=== PATIENT | male | born 1970 | race American Indian/Alaskan Native ===

== ENCOUNTER 2020-08-19 12:04 | Inpatient (IN) | payer SELFPAY ==
[2020-08-19] MEDS ORDERED: dexAMETHasone 4 MG/ML VIAL IV ONE (12:29)
--- NOTE | 2020-08-19 12:32 | Emergency Department Report ---
ED Shortness of Breath HPI - General Chief Complaint: Dyspnea/Respdistress Stated Complaint: SOB/COVID POS Time Seen by Provider: 08/19/20 12:19 Source: EMS Mode of arrival: Stretcher Limitations: No Limitations - History of Present Illness Initial Comments: Patient is 50 years old male with history of hypertension. Patient presented to the ER complaining of cough shortness of breath and generalized weakness for the last few days. Patient stated that he was diagnosed with COVID-19 2 days ago. Patient denied any fever or chills. Patient also denied any nausea, vomiting or diarrhea. No chest pain. Patient found to have a oxygen saturation of 90% on room air. MD Complaint: shortness of breath, cough - Related Data Allergies Allergy/AdvReac Type Severity Reaction Status Date / Time iodine AdvReac Unknown Verified 08/19/20 13:11 ED Review of Systems ROS: Stated complaint: SOB/COVID POS Other details as noted in HPI Comment: All other systems reviewed and negative Constitutional: denies: chills, fever Respiratory: cough, shortness of breath, SOB with exertion, SOB at rest. denies: wheezing Cardiovascular: denies: chest pain, palpitations Gastrointestinal: denies: abdominal pain, nausea, vomiting Neurological: weakness. denies: headache, numbness, paresthesias, confusion, abnormal gait ED Past Medical Hx - Past Medical History Hx Hypertension: Yes ED Physical Exam - General Limitations: No Limitations General appearance: alert, in distress (Moderate respiratory distress.) - Head Head exam: Present: atraumatic, normocephalic, normal inspection - Eye Eye exam: Present: normal appearance, PERRL - ENT ENT exam: Present: mucous membranes dry - Neck Neck exam: Present: normal inspection, full ROM. Absent: tenderness, meningismus - Respiratory Respiratory exam: Present: respiratory distress, rales, decreased breath sounds. Absent: wheezes - Cardiovascular Cardiovascular Exam: Present: regular rate, normal rhythm, normal heart sounds - GI/Abdominal GI/Abdominal exam: Present: soft, normal bowel sounds. Absent: distended, tenderness, guarding, rebound, rigid, organomegaly, mass, bruit, pulsatile mass, hernia - Extremities Exam Extremities exam: Present: normal inspection, full ROM, normal capillary refill. Absent: tenderness, pedal edema, joint swelling, calf tenderness - Back Exam Back exam: Present: normal inspection, full ROM. Absent: CVA tenderness (R), CVA tenderness (L) - Neurological Exam Neurological exam: Present: alert, oriented X3, CN II-XII intact, normal gait, reflexes normal. Absent: motor sensory deficit - Psychiatric Psychiatric exam: Present: normal mood - Skin Skin exam: Present: warm, intact, normal color ED Course Vital Signs 08/19/20 08/19/20 08/19/20 12:08 13:00 13:01 Temperature 100.3 F H Pulse Rate 110 H 105 H 110 H Respiratory 20 27 H 20 Rate Blood Pressure 136/76 125/81 Blood Pressure [Right] O2 Sat by Pulse 90 97 91 Oximetry 08/19/20 08/19/20 08/19/20 13:16 13:30 13:46 Temperature Pulse Rate 102 H 101 H 101 H Respiratory 28 H 41 H 25 H Rate Blood Pressure 125/81 125/81 125/81 Blood Pressure [Right] O2 Sat by Pulse 98 97 93 Oximetry 08/19/20 08/19/20 08/19/20 14:00 14:16 14:30 Temperature Pulse Rate 100 H 99 H 97 H Respiratory 33 H 39 H 35 H Rate Blood Pressure 122/82 122/82 122/82 Blood Pressure [Right] O2 Sat by Pulse 94 94 97 Oximetry 08/19/20 08/19/20 08/19/20 14:31 14:46 15:00 Temperature Pulse Rate 97 H 101 H Respiratory 18 25 H 34 H Rate Blood Pressure 122/82 114/77 Blood Pressure [Right] O2 Sat by Pulse 96 100 Oximetry 08/19/20 08/19/20 08/19/20 15:16 15:30 15:46 Temperature Pulse Rate 96 H 97 H 91 H Respiratory 34 H 34 H 29 H Rate Blood Pressure 114/77 114/77 114/77 Blood Pressure [Right] O2 Sat by Pulse 96 96 96 Oximetry 08/19/20 08/19/20 08/19/20 16:00 16:16 16:30 Temperature Pulse Rate 95 H 99 H 94 H Respiratory 27 H 20 17 Rate Blood Pressure 134/89 134/89 134/89 Blood Pressure [Right] O2 Sat by Pulse 96 93 92 Oximetry 08/19/20 08/19/20 08/19/20 16:46 19:00 19:16 Temperature Pulse Rate 92 H 86 89 Respiratory 29 H Rate Blood Pressure 134/89 140/93 140/93 Blood Pressure [Right] O2 Sat by Pulse 96 95 95 Oximetry 08/19/20 08/19/20 08/19/20 19:30 20:00 20:16 Temperature 97.9 F Pulse Rate 90 86 86 Respiratory 24 Rate Blood Pressure 140/93 145/96 145/96 Blood Pressure 140/93 [Right] O2 Sat by Pulse 95 95 96 Oximetry ED Medical Decision Making - Lab Data Result diagrams: 08/20/20 08:37 08/20/20 08:37 - Radiology Data Radiology results: report reviewed - Medical Decision Making Patient is 50 years old male with history of hypertension. Patient presented to the ER complaining of cough shortness of breath and generalized weakness for the last few days. Patient stated that he was diagnosed with COVID-19 2 days ago. Patient denied any fever or chills. Patient also denied any nausea, vomiting or diarrhea. No chest pain. Patient found to have a oxygen saturation of 90% on room air. Chest x-ray showed diffuse infiltrates. Patient received dexamethasone, Rocephin and Zithromax. Lactic acid elevated at 2.2 patient received normal saline. COVID-19 test has been ordered. I discussed the patient with Dr. Rdz, he agreed to admit the patient to medical service for further management. Critical Care Time: Yes Critical care time in (mins) excluding proc time.: 30 Critical care attestation.: If time is entered above; I have spent that time in minutes in the direct care of this critically ill patient, excluding procedure time. ED Disposition Clinical Impression: Acute respiratory failure due to COVID-19, Bilateral pneumonia Sepsis Qualifiers: Acute respiratory failure type: with hypoxia Disposition: OP ADMIT IP TO THIS HOSP Is pt being admited?: Yes Condition: Stable
--- NOTE | 2020-08-19 13:11 | XRay Report ---
CHEST 1 VIEW INDICATION / CLINICAL INFORMATION: Dyspnea. COMPARISON: None available. FINDINGS: SUPPORT DEVICES: None. HEART / MEDIASTINUM: No significant abnormality. LUNGS / PLEURA: Mild-moderate and irregular hazy opacities throughout the lungs. Lung volumes are low . No significant pleural effusion. No pneumothorax. ADDITIONAL FINDINGS: No significant additional findings. IMPRESSION: 1. Mild/moderate diffuse airspace disease concerning for atypical pneumonia such as that with Covid 1 9. Recommend clinical correlation and continued follow-up until resolution. Signer Name: Miki Robbins MD Signed: 08/19/2020 1:06 PM Workstation Name: [id number]
[2020-08-19 13:26] LABS: Hematocrit 42.2 % (35.5-45.6); Hemoglobin 14.3 gm/dl (11.8-15.2); Mean Corpuscular HGB Conc 34 % (32-34); Mean Corpuscular Volume 84 fl (84-94); Platelet Count 272 K/mm3 (140-440); Red Blood Count 5.05 M/mm3 (3.65-5.03); Red Cell Distribution Width 13.1 % (13.2-15.2)
[2020-08-19] MEDS ORDERED: cefTRIAXone/NS 1 GM/50 ML 1 GM/50 ML BAG IV ONE (13:33)
[2020-08-19 13:35] LABS: INR 1.13 (0.87-1.13)
[2020-08-19 13:36] LABS: Partial Thromboplastin Time 29.2 Sec. (24.2-36.6)
[2020-08-19] MEDS ORDERED: SODIUM CHLORIDE 0.9% 1000 ML 1,000 ML IV ONE ×2 (13:37→14:09)
[2020-08-19 13:45] LABS: BUN/Creatinine Ratio 16; Blood Urea Nitrogen 16 mg/dL (9-20); Hemolysis Index 1
[2020-08-19 13:49] LABS: Bilirubin,Direct 0.2 mg/dL (0-0.2)
[2020-08-19] MEDS ORDERED: INSULIN REGULAR, HUMAN 100 UNIT/ML 3ML VIAL IV ONE (14:00)
[2020-08-19] MEDS ORDERED: AZITHROMYCIN 500 MG in SODIUM CHLORIDE 0.9% 250ML 250 ML IV ONE (14:00)
[2020-08-19] MEDS ORDERED: ACETAMINOPHEN 500 MG TAB PO ONE (14:09)
--- NOTE | 2020-08-19 14:30 | History and Physical Report ---
History of Present Illness Chief complaint: I just feel bad History of present illness: 50 YO Male with HTN presents to ED for evaluation. Patient states that he has "been feeling bad" for the past 4 days with persistently worsening symptoms over the same timeframe. Patient was diagnosed with coronavirus 2 days ago. Patient states that he has experienced, dry cough, shortness of breath, decreased exercise tolerance, loss of sense of smell, loss of sense of taste, fatigue, malaise, body aches. EMS notified and upon arrival the patient was found to be in distress and subsequently transported to [facility] for further care and evaluation of the aforementioned symptoms. Patient seen and evaluated in the emergency de partment. All lab and imaging studies reviewed. Patient found to have a pulse oximetry of 88% with exertion on room air which is consistent with acute hypoxemic respiratory failure. Patient underwent chest x-ray which revealed bilateral pneumonia complicated by sepsis. Patient admitted to medical floor and initiated on pneumonia protocol, sepsis protocol, as well as coronavirus protocol. Patient denies chest pain, palpitation, skin rash, recent ill contacts, trauma. No medication listed at time of admission. No prior admission for review. Past History Past Medical History: hypertension Past Surgical History: No surgical history, Other (Reviewed) Social history: single. denies: smoking, alcohol abuse, prescription drug abuse Family history: hypertension Medications and Allergies Allergies Allergy/AdvReac Type Severity Reaction Status Date / Time iodine AdvReac Unknown Verified 08/19/20 13:11 Active Meds: Active Medications Azithromycin 500 mg/ Sodium (Chloride) 250 mls @ 250 mls/hr IV ONCE ONE; Protocol Stop: 08/19/20 14:59 Sodium Chloride (Nacl 0.9% 1000 Ml) 1,000 mls @ 999 mls/hr IV BOLUS ONE Stop: 08/19/20 14:37 Sodium Chloride (Nacl 0.9% 1000 Ml) 1,000 mls @ 999 mls/hr IV BOLUS ONE Stop: 08/19/20 15:09 Review of Systems Constitutional: fatigue, weakness, malaise, no weight loss, no weight gain Ears, nose, mouth and throat: other (Loss of sense of smell, loss of sense of taste), no ear pain, no ear discharge, no tinnitis, no decreased hearing, no nasal congestion Cardiovascular: no chest pain, no orthopnea, no edema Respiratory: shortness of breath, no cough Gastrointestinal: no nausea, no vomiting, no diarrhea, no constipation Genitourinary Male: no hematuria, no flank pain, no urinary frequency, no urinary hesitancy Rectal: no pain, no incontinence, no bleeding Musculoskeletal: no neck stiffness, no shooting arm pain, no arm numbness/tingling, no low back pain Integumentary: no rash, no pruritis, no redness, no sores, no wounds, no jaundice Neurological: no head injury, no weakness, no parathesias Psychiatric: no anxiety, no memory loss, no change in sleep habits, no change in appetite Endocrine: no cold intolerance, no excessive thirst, no polydipsia, no polyuria, no nocturia Hematologic/Lymphatic: no easy bruising, no easy bleeding, no lymphadenopathy Allergic/Immunologic: no urticaria, no anaphylaxis Exam - Constitutional Vitals: Temp Pulse Resp BP Pulse Ox 100.3 F H 110 H 20 125/81 91 08/19/20 12:08 08/19/20 13:01 08/19/20 13:01 08/19/20 13:00 08/19/20 13:01 General appearance: Present: mild distress - EENT Eyes: Present: PERRL ENT: hearing intact, clear oral mucosa - Neck Neck: Present: supple, normal ROM - Respiratory Respiratory effort: labored, accessory muscle use, stridor Respiratory: bilateral: diminished, rhonchi - Cardiovascular Rhythm: other (Tachycardia) Heart Sounds: Present: S1 & S2. Absent: rub, click - Extremities Extremities: pulses symmetrical, No edema Peripheral Pulses: abnormal (Capillary refill greater than 3.5 seconds) - Abdominal General gastrointestinal: Present: soft, non-tender, non-distended, normal bowel sounds Male genitourinary: Present: normal - Integumentary Integumentary: Present: dry, clammy, decreased turgor - Musculoskeletal Musculoskeletal: generalized weakness - Psychiatric Psychiatric: appropriate mood/affect, intact judgment & insight - Neurologic Neurologic: CNII-XII intact, moves all extremities Results - Labs CBC & Chem 7: 08/19/20 13:04 08/19/20 13:04 Labs: Abnormal lab results 08/19/20 08/19/20 08/19/20 Range/Units 13:04 13:04 13:04 WBC 11.6 H (4.5-11.0) K/mm3 RBC 5.05 H (3.65-5.03) M/mm3 RDW 13.1 L (13.2-15.2) % Sodium 135 L (137-145) mmol/L Potassium 5.1 H (3.6-5.0) mmol/L Glucose 324 H (75-100) mg/dL Lactic Acid 2.10 H* (0.7-2.0) mmol/L AST (5-40) units/L Albumin (3.9-5) g/dL 08/19/20 Range/Units 13:04 WBC (4.5-11.0) K/mm3 RBC (3.65-5.03) M/mm3 RDW (13.2-15.2) % Sodium (137-145) mmol/L Potassium (3.6-5.0) mmol/L Glucose (75-100) mg/dL Lactic Acid (0.7-2.0) mmol/L AST 48 H (5-40) units/L Albumin 3.0 L (3.9-5) g/dL Assessment and Plan - Patient Problems (1) Sepsis Current Visit: Yes Status: Acute Qualifiers: Acute respiratory failure type: with hypoxia Plan to address problem: Sepsis protocol: Chest x-ray, CBC, CMP, urinalysis, IV antibiotic therapy, blood culture, serial lactic acid level, maintain mean arterial blood pressure greater than or equal to 65, monitor fluid balance, (2) Acute hypoxemic respiratory failure Current Visit: Yes Status: Acute Plan to address problem: Chest x-ray, supplemental oxygen, pulse oximetry, nebulizer therapy, pulmonary toilet, prone positioning while in bed, (3) Coronavirus infection Current Visit: Yes Status: Acute Plan to address problem: Coronavirus protocol: Contact precaution, isolation precaution, supplemental oxygen, pulse oximetry, nebulizer therapy, IV steroid therapy, IV antibiotic therapy (4) Bilateral pneumonia Current Visit: Yes Status: Acute Plan to address problem: Pneumonia protocol: Chest x-ray, CBC, CMP, nebulizer therapy, pulse oximetry, IV antibiotic therapy, blood culture. (5) Hypertension Current Visit: Yes Status: Acute Qualifiers: Hypertension type: essential hypertension Qualified Code(s): I10 - Essential (primary) hypertension Plan to address problem: Monitor blood pressure every shift, continue medical management (6) DVT prophylaxis Current Visit: Yes Status: Acute Plan to address problem: SCD to bilateral lower extremities while in bed, prophylactic anticoagulation
[2020-08-19 14:43] LABS: Band Neutrophils # (Manual) 0.1 K/mm3; Total Cells Counted 100
[2020-08-19 14:44] LABS: Platelet Estimate Consistent w Auto; RBC Morphology Normal
[2020-08-19] MEDS ORDERED: HYDROmorphone 1 MG/1 ML INJ IV PRN (14:44)
[2020-08-19] MEDS ORDERED: ONDANSETRON 4 MG/2 ML INJ IV PRN (14:44)
[2020-08-19] MEDS ORDERED: ALBUTEROL 2.5 MG/3 ML NEBU IH PRN (14:44)
[2020-08-19] MEDS ORDERED: ACETAMINOPHEN 325 MG TAB PO PRN (14:44)
[2020-08-19 20:48] LABS: Bilirubin,Urine NEG (Negative); Blood,Urine NEG (Negative); Color,Urine Yellow (Yellow); Urobilinogen,Urine < 2.0 mg/dL (<2.0)
[2020-08-19 20:52] LABS: Protein,Urine >500 mg/dL (Negative)
[2020-08-19] MEDS: HEPARIN 5,000 UNIT/1 ML VIAL SUB-Q SCH (22:46)
[2020-08-20] MEDS ORDERED: hydrALAZINE 20 MG/1 ML INJ IV ONE (07:05)
[2020-08-20] MEDS: HEPARIN 5,000 UNIT/1 ML VIAL SUB-Q SCH ×2 (09:34→22:12)
[2020-08-20 09:59] LABS: BUN/Creatinine Ratio 24; Blood Urea Nitrogen 22 mg/dL (9-20); Calcium 8.8 mg/dL (8.4-10.2); Hemolysis Index 34
[2020-08-20 10:00] LABS: Basophils # (Auto) 0.1 K/mm3 (0.0-0.1); Basophils % (Auto) 0.6 % (0.0-1.8); Hematocrit 42.4 % (35.5-45.6); Hemoglobin 14.4 gm/dl (11.8-15.2); Lymphocytes # (Auto) 1.2 K/mm3 (1.2-5.4); Lymphocytes % (Auto) 9.5 % (13.4-35.0); Mean Corpuscular HGB Conc 34 % (32-34); Mean Corpuscular Volume 84 fl (84-94); Monocytes # (Auto) 1.1 K/mm3 (0.0-0.8); Monocytes % (Auto) 8.8 % (0.0-7.3); Platelet Count 316 K/mm3 (140-440); Red Blood Count 5.03 M/mm3 (3.65-5.03); Red Cell Distribution Width 13.1 % (13.2-15.2)
--- NOTE | 2020-08-20 11:15 | Consultation ---
History of Present Illness - Reason for Consult Consult date: 08/20/20 - History of Present Illness 50-year-old man past medical history hypertension brought to the hospital due to general malaise for the past 4 days. His symptoms are also progressively worse over that timeframe. He notes he was diagnosed as an outpatient with COVID-19 2 days prior to admission. He also complains of dry cough and shortness of breath. He has had to be hypoxic on presentation to the emergency room with a room air saturation of 88%. He otherwise denies any symptoms. Afebrile since admission with a T-max of 100.3, white count is 12.4. Elevated lactic acid on admission, normal renal function, pending procalcitonin. Currently receiving ceftriaxone and azithromycin. Blood cultures currently pending. He is receiving 3 L nasal cannula. Imaging personally reviewed: Chest x-ray: Moderate diffuse airspace disease. Review of Systems: Bold if positive, otherwise negative General: fevers, chills, rigors HEENT: visual disturbance, diplopia, eye pain Respiratory: cough, sputum, hemoptysis, shortness of breath Cardiovascular: chest pain, syncope Gastrointestinal: nausea, vomiting, diarrhea, abdominal pain Genitourinary: dysuria, hematuria, flank pain Musculoskeletal: neck pain, back pain, joint pain, edema Neurologic: headaches, seizures Hematologic: easy bruising or bleeding Endocrine: night sweats, acute weight loss Skin: rash, jaundice, redness Psychiatric: suicidal, homicidal ideation Past History Past Medical History: hypertension Past Surgical History: No surgical history, Other (Reviewed) Social history: single. denies: smoking, alcohol abuse, prescription drug abuse Family history: hypertension Medications and Allergies Allergies Allergy/AdvReac Type Severity Reaction Status Date / Time iodine AdvReac Unknown Verified 08/19/20 13:11 Active Meds: Active Medications Acetaminophen (Acetaminophen 325 Mg Tab) 650 mg PO Q4H PRN PRN Reason: Pain MILD(1-3)/Fever >100.5/MEIER Albuterol (Albuterol 2.5 Mg/3 Ml Nebu) 2.5 mg IH Q4H PRN PRN Reason: Shortness Of Breath Heparin Sodium (Porcine) (Heparin 5,000 Unit/1 Ml Vial) 5,000 unit SUB-Q Q12HR TARA Last Admin: 08/20/20 09:34 Dose: 5,000 unit Documented by: Hydromorphone HCl (Hydromorphone 1 Mg/1 Ml Inj) 0.25 mg IV Q4H PRN PRN Reason: Pain, Moderate (4-6) Ceftriaxone Sodium (Rocephin/Ns 2 Gm/100 Ml) 2 gm in 100 mls @ 200 mls/hr IV Q24H TARA; Protocol Azithromycin 500 mg/ Sodium (Chloride) 250 mls @ 250 mls/hr IV Q24H TARA; Protocol Ondansetron HCl (Ondansetron 4 Mg/2 Ml Inj) 4 mg IV Q8H PRN PRN Reason: Nausea And Vomiting Sodium Chloride (Sodium Chloride 0.9% 10 Ml Flush Syringe) 10 ml IV BID TARA Last Admin: 08/20/20 09:35 Dose: 10 ml Documented by: Sodium Chloride (Sodium Chloride 0.9% 10 Ml Flush Syringe) 10 ml IV PRN PRN PRN Reason: LINE FLUSH Physical Examination - Physical Exam Narrative exam: Physical exam deferred due to PPE conservation strategy. Please refer to primary team's note. - Constitutional Vitals: Vital Signs Temp Pulse Resp BP Pulse Ox 98.6 F 101 H 20 164/111 95 08/20/20 05:44 08/20/20 05:44 08/20/20 05:44 08/20/20 05:44 08/20/20 09:07 Temperature -Last 24 Hours Temperature 98.6 F Temperature 98.1 F Temperature 97.9 F Temperature 100.3 F Results - Labs CBC & Chem 7: 08/20/20 08:37 08/20/20 08:37 Labs: Abnormal lab results 08/19/20 08/19/20 08/19/20 Range/Units 13:04 13:04 13:04 WBC 11.6 H (4.5-11.0) K/mm3 RBC 5.05 H (3.65-5.03) M/mm3 RDW 13.1 L (13.2-15.2) % Lymph % (Auto) (13.4-35.0) % [place] % (Auto) (0.0-7.3) % [place] # (Auto) (0.0-0.8) K/mm3 Seg Neutrophils % (40.0-70.0) % Seg Neuts % (Manual) 89.0 H (40.0-70.0) % Lymphocytes % (Manual) 7.0 L (13.4-35.0) % Seg Neutrophils # (1.8-7.7) K/mm3 Seg Neutrophils # Man 10.3 H (1.8-7.7) K/mm3 Lymphocytes # (Manual) 0.8 L (1.2-5.4) K/mm3 Sodium 135 L (137-145) mmol/L Potassium 5.1 H (3.6-5.0) mmol/L Carbon Dioxide (22-30) mmol/L BUN (9-20) mg/dL Glucose 324 H (75-100) mg/dL POC Glucose (70-105) mg/dL Lactic Acid 2.10 H* (0.7-2.0) mmol/L AST (5-40) units/L Albumin (3.9-5) g/dL 08/19/20 08/19/20 08/20/20 Range/Units 13:04 14:39 08:37 WBC 12.4 H (4.5-11.0) K/mm3 RBC (3.65-5.03) M/mm3 RDW 13.1 L (13.2-15.2) % Lymph % (Auto) 9.5 L (13.4-35.0) % [place] % (Auto) 8.8 H (0.0-7.3) % [place] # (Auto) 1.1 H (0.0-0.8) K/mm3 Seg Neutrophils % 81.1 H (40.0-70.0) % Seg Neuts % (Manual) (40.0-70.0) % Lymphocytes % (Manual) (13.4-35.0) % Seg Neutrophils # 10.0 H (1.8-7.7) K/mm3 Seg Neutrophils # Man (1.8-7.7) K/mm3 Lymphocytes # (Manual) (1.2-5.4) K/mm3 Sodium (137-145) mmol/L Potassium (3.6-5.0) mmol/L Carbon Dioxide (22-30) mmol/L BUN (9-20) mg/dL Glucose (75-100) mg/dL POC Glucose 274 H (70-105) mg/dL Lactic Acid (0.7-2.0) mmol/L AST 48 H (5-40) units/L Albumin 3.0 L (3.9-5) g/dL 08/20/20 Range/Units 08:37 WBC (4.5-11.0) K/mm3 RBC (3.65-5.03) M/mm3 RDW (13.2-15.2) % Lymph % (Auto) (13.4-35.0) % [place] % (Auto) (0.0-7.3) % [place] # (Auto) (0.0-0.8) K/mm3 Seg Neutrophils % (40.0-70.0) % Seg Neuts % (Manual) (40.0-70.0) % Lymphocytes % (Manual) (13.4-35.0) % Seg Neutrophils # (1.8-7.7) K/mm3 Seg Neutrophils # Man (1.8-7.7) K/mm3 Lymphocytes # (Manual) (1.2-5.4) K/mm3 Sodium 135 L (137-145) mmol/L Potassium (3.6-5.0) mmol/L Carbon Dioxide 20 L (22-30) mmol/L BUN 22 H (9-20) mg/dL Glucose 462 H (75-100) mg/dL POC Glucose (70-105) mg/dL Lactic Acid (0.7-2.0) mmol/L AST (5-40) units/L Albumin (3.9-5) g/dL Assessment and Plan Cultures: Blood culture no growth so far. A/P: 50-year-old man past medical history hypertension admitted to the hospital with COVID-19 #COVID-19 pneumonia: Patient presented with 4 days of symptoms, chest x-ray with diffuse bilateral infiltrates, admission O2 sats 88% on room air #Acute hypoxemic respiratory failure: Likely secondary to COVID-19 infection. Currently on 3L NC #Hypertension Recs: -Start Dexamethasone 6 mg IV/PO daily for 10 days -Start Remdesivir 200 mg IV q day x 1 followed by 100 mg IV q day x 4 days. Monitor renal and hepatic function while receiving. -Continue ceftriaxone 2 gm IV qday and azithromycin 500 mg PO qday, if procalcitonin <0.25 ng/mL will stop antibiotics -Proning as able -Anticoagulation per hospital protocol Dr. Larios taking over tomorrow Thank you for the consult, we will continue to follow. Leonardo Dickens MD [facility] ([facility] O: [phone] F: [phone]
--- NOTE | 2020-08-20 12:23 | Consultation ---
History of Present Illness Reason for consult: dyspnea, pneumonia History of present illness: This is a gentleman w hx of recently dx HTN who also has had fatigue and sob. He was covid positive. he came in the [facility] during eval was noted to be hypoxic Presently he is still sob w cough. He reports that cough is non productive at this time also so w minimal exertion. None at rest Past History Past Medical History: hypertension Past Surgical History: No surgical history, Other (Reviewed) Social history: single. denies: smoking, alcohol abuse, prescription drug abuse Family history: hypertension Medications and Allergies Allergies Allergy/AdvReac Type Severity Reaction Status Date / Time iodine AdvReac Unknown Verified 08/19/20 13:11 Home Medications Medication Instructions Recorded Confirmed Last Taken Type Lisinopril 08/20/20 Unknown History Active Meds: Active Medications Acetaminophen (Acetaminophen 325 Mg Tab) 650 mg PO Q4H PRN PRN Reason: Pain MILD(1-3)/Fever >100.5/MEIER Albuterol (Albuterol 2.5 Mg/3 Ml Nebu) 2.5 mg IH Q4H PRN PRN Reason: Shortness Of Breath Dexamethasone (Dexamethasone 4 Mg Tab) 6 mg PO Q24HR TARA Heparin Sodium (Porcine) (Heparin 5,000 Unit/1 Ml Vial) 5,000 unit SUB-Q Q12HR TARA Last Admin: 08/20/20 09:34 Dose: 5,000 unit Documented by: Hydromorphone HCl (Hydromorphone 1 Mg/1 Ml Inj) 0.25 mg IV Q4H PRN PRN Reason: Pain, Moderate (4-6) Ceftriaxone Sodium (Rocephin/Ns 2 Gm/100 Ml) 2 gm in 100 mls @ 200 mls/hr IV Q24H TARA; Protocol Azithromycin 500 mg/ Sodium (Chloride) 250 mls @ 250 mls/hr IV Q24H TARA; Protocol REMDESIVIR 200 mg/ Sodium (Chloride) 250 mls @ 500 mls/hr IV ONCE ONE Stop: 08/20/20 12:59 REMDESIVIR 100 mg/ Sodium (Chloride) 250 mls @ 500 mls/hr IV Q24HR@2100 TARA Stop: 08/24/20 21:29 Ondansetron HCl (Ondansetron 4 Mg/2 Ml Inj) 4 mg IV Q8H PRN PRN Reason: Nausea And Vomiting Sodium Chloride (Sodium Chloride 0.9% 10 Ml Flush Syringe) 10 ml IV BID [facility] Last Admin: 08/20/20 09:35 Dose: 10 ml Documented by: Sodium Chloride (Sodium Chloride 0.9% 10 Ml Flush Syringe) 10 ml IV PRN PRN PRN Reason: LINE FLUSH Sodium Chloride (Sodium Chloride 0.9% 50 Ml Ivpb) 50 ml IV Q24HR@2130 [facility] Stop: 08/24/20 21:31 Review of Systems Constitutional: fatigue, weakness Respiratory: cough, shortness of breath, dyspnea on exertion, congestion Physical Examination Vital signs: Vital Signs Temp Pulse Resp BP Pulse Ox 100.3 F H 110 H 20 136/76 90 08/19/20 12:08 08/19/20 12:08 08/19/20 12:08 08/19/20 12:08 08/19/20 12:08 General appearance: alert Eyes: non-icteric Neck: supple Ascultation: Bilateral: rhonchi (rare) Cardiovascular: regular rate and rhythm Gastrointestinal: normoactive bowel sounds, soft, non-tender Integumentary: normal Extremities: no cyanosis normal mental status mood appropriate Results - Laboratory Findings CBC and BMP: 08/20/20 08:37 08/20/20 08:37 PT/INR, D-dimer PT 14.3 Sec. (12.2-14.9) 08/19/20 13:04 INR 1.13 (0.87-1.13) 08/19/20 13:04 Abnormal lab findings: Abnormal Labs 08/19/20 08/19/20 08/19/20 13:04 13:04 13:04 WBC 11.6 H RBC 5.05 H RDW 13.1 L Lymph % (Auto) [place] % (Auto) [place] # (Auto) Seg Neutrophils % Seg Neuts % (Manual) 89.0 H Lymphocytes % (Manual) 7.0 L Seg Neutrophils # Seg Neutrophils # Man 10.3 H Lymphocytes # (Manual) 0.8 L Sodium 135 L Potassium 5.1 H Carbon Dioxide BUN Glucose 324 H POC Glucose Lactic Acid 2.10 H* AST Albumin 08/19/20 08/19/20 08/20/20 13:04 14:39 08:37 WBC 12.4 H RBC RDW 13.1 L Lymph % (Auto) 9.5 L [place] % (Auto) 8.8 H [place] # (Auto) 1.1 H Seg Neutrophils % 81.1 H Seg Neuts % (Manual) Lymphocytes % (Manual) Seg Neutrophils # 10.0 H Seg Neutrophils # Man Lymphocytes # (Manual) Sodium Potassium Carbon Dioxide BUN Glucose POC Glucose 274 H Lactic Acid AST 48 H Albumin 3.0 L 08/20/20 08:37 WBC RBC RDW Lymph % (Auto) [place] % (Auto) [place] # (Auto) Seg Neutrophils % Seg Neuts % (Manual) Lymphocytes % (Manual) Seg Neutrophils # Seg Neutrophils # Man Lymphocytes # (Manual) Sodium 135 L Potassium Carbon Dioxide 20 L BUN 22 H Glucose 462 H POC Glucose Lactic Acid AST Albumin - Diagnostic Findings Chest x-ray: report reviewed, image reviewed Assessment and Plan - Patient Problems (1) Cough Current Visit: Yes Status: Acute (2) Acute hypoxemic respiratory failure Current Visit: Yes Status: Acute (3) Acute respiratory failure due to COVID-19 Current Visit: Yes Status: Acute (4) Bilateral pneumonia Current Visit: Yes Status: Acute (5) Coronavirus infection Current Visit: Yes Status: Acute (6) Hypertension Current Visit: Yes Status: Acute Qualifiers: Hypertension type: essential hypertension Qualified Code(s): I10 - Essential (primary) hypertension (7) Sepsis Current Visit: Yes Status: Acute Qualifiers: Acute respiratory failure type: with hypoxia
[2020-08-20] MEDS ORDERED: REMDESIVIR 100 MG VIAL IV ONE (12:30)
[2020-08-20] MEDS ORDERED: REMDESIVIR 200 MG in SODIUM CHLORIDE 0.9% 250ML 250 ML IV ONE (12:30)
[2020-08-20] MEDS: cefTRIAXone/NS 2 GM/100 ML 2 GM/100 ML BAG IV SCH (13:42)
[2020-08-20] MEDS: BENZONATATE 100 MG CAP PO SCH ×2 (13:44→22:12)
[2020-08-20] MEDS: DEXAMETHASONE 4 MG TAB PO SCH (13:44)
[2020-08-20] MEDS: SODIUM CHLORIDE 0.9% 50 ML IVPB IV SCH (13:47)
[2020-08-20] MEDS: AZITHROMYCIN 500 MG in SODIUM CHLORIDE 0.9% 250ML 250 ML IV SCH (15:30)
[2020-08-21] MEDS: BENZONATATE 100 MG CAP PO SCH ×4 (05:26→22:01)
--- NOTE | 2020-08-21 06:44 | Progress Note ---
Assessment and Plan Assessment and Plan - Patient Problems (1) Sepsis Current Visit: Yes Status: Acute Qualifiers: Acute respiratory failure type: with hypoxia Plan to address problem: Sepsis protocol: Chest x-ray, CBC, CMP, urinalysis, IV antibiotic therapy, blood culture, serial lactic acid level, maintain mean arterial blood pressure greater than or equal to 65, monitor fluid balance, (2) Acute hypoxemic respiratory failure Current Visit: Yes Status: Acute Plan to address problem: Continue oxygen supplementation (3) Coronavirus infection Current Visit: Yes Status: Acute Plan to address problem: Patient is apparently Covid positive No Covid test done We will get a repeat coronavirus PCR (4) Bilateral pneumonia Current Visit: Yes Status: Acute Plan to address problem: Pneumonia protocol: Chest x-ray, CBC, CMP, nebulizer therapy, pulse oximetry, IV antibiotic therapy, blood culture. (5) Hypertension Current Visit: Yes Status: Acute Qualifiers: Hypertension type: essential hypertension Qualified Code(s): I10 - Essential (primary) hypertension Plan to address problem: Monitor blood pressure every shift, continue medical management (6) DVT prophylaxis Current Visit: Yes Status: Acute Plan to address problem: SCD to bilateral lower extremities while in bed, prophylactic anticoagulation Subjective Date of service: 08/20/20 Principal diagnosis: Covid pneumonia and respiratory failure with hypoxia Interval history: 50-year-old man past medical history hypertension brought to the hospital due to general malaise for the past 4 days. His symptoms are also progressively worse over that timeframe. He notes he was diagnosed as an outpatient with COVID-19 2 days prior to admission. He also complains of dry cough and shortness of breath. He has had to be hypoxic on presentation to the emergency room with a room air saturation of 88%. He otherwise denies any symptoms. Afebrile since admission with a T-max of 100.3, white count is 12.4. Elevated lactic acid on admission, normal renal function, pending procalcitonin. Currently receiving ceftriaxone and azithromycin. Blood cultures currently pending. He is receiving 3 L nasal cannula. 08/20/2020 Patient on 3 L nasal cannula oxygen Patient is Covid positive Objective - Constitutional Vitals: Vital Signs - 12hr 08/20/20 08/20/20 08/21/20 20:10 23:28 05:39 Temperature 97.7 F 97.4 F L Pulse Rate 94 H 91 H Respiratory 20 20 Rate Blood Pressure 159/107 169/112 O2 Sat by Pulse 95 94 94 Oximetry General appearance: Present: mild distress, well-nourished - EENT Eyes: PERRL, EOM intact ENT: hearing intact, clear oral mucosa Ears: bilateral: normal - Neck Neck: supple, normal ROM - Respiratory Respiratory effort: normal Respiratory: bilateral: CTA, rhonchi (Scattered) - Breasts Breasts: normal - Cardiovascular Heart rate: 88 Rhythm: regular Heart Sounds: Present: S1 & S2. Absent: gallop, rub Extremities: pulses intact, No edema, normal color, Full ROM - Gastrointestinal General gastrointestinal: Present: soft, non-tender, non-distended, normal bowel sounds - Genitourinary Male genitourinary: normal - Integumentary Integumentary: clear, warm, dry - Musculoskeletal Musculoskeletal: 1, strength equal bilaterally - Neurologic Neurologic: moves all extremities - Psychiatric Psychiatric: memory intact, appropriate mood/affect, intact judgment & insight - Labs CBC & Chem 7: 08/20/20 08:37 08/20/20 08:37 Labs: Abnormal lab results 08/20/20 08/20/20 Range/Units 08:37 08:37 WBC 12.4 H (4.5-11.0) K/mm3 RDW 13.1 L (13.2-15.2) % Lymph % (Auto) 9.5 L (13.4-35.0) % [place] % (Auto) 8.8 H (0.0-7.3) % [place] # (Auto) 1.1 H (0.0-0.8) K/mm3 Seg Neutrophils % 81.1 H (40.0-70.0) % Seg Neutrophils # 10.0 H (1.8-7.7) K/mm3 Sodium 135 L (137-145) mmol/L Carbon Dioxide 20 L (22-30) mmol/L BUN 22 H (9-20) mg/dL Glucose 462 H (75-100) mg/dL
--- NOTE | 2020-08-21 08:13 | Progress Note ---
Assessment and Plan Cultures: Blood culture no growth so far. A/P: 50-year-old man past medical history hypertension admitted to the hospital with COVID-19 #Severe COVID-19 pneumonia: Patient presented with 4 days of symptoms, chest x- ray with diffuse bilateral infiltrates, admission O2 sats 88% on room air #Acute hypoxemic respiratory failure: Likely secondary to COVID-19 infection. Remains on 3L NC #Hypertension #Elevated lactate: Likely due to pneumonia, blood cultures negative, urinalysis negative. Recs: -STAT Covid inflammatory markers, check SARS Covid 2 IgG -Continue dexamethasone 6 mg IV/PO daily for 10 days -Continue remdesivir total 5 days monitor renal and hepatic function while receiving. -Continue ceftriaxone 2 gm IV qday and azithromycin 500 mg PO qday, if procalcitonin <0.25 ng/mL will stop antibiotics, procalcitonin not available -Proning as able -Anticoagulation per hospital protocol Shanna Larios MD [facility] ([facility]) Office [phone] Subjective Date of service: 08/21/20 Principal diagnosis: Covid pneumonia and respiratory failure with hypoxia Interval history: Remains afebrile, on 3 L nasal cannula Objective - Exam Narrative Exam: Deferred to prevent COVID-19 transmission - Constitutional Vitals: Vital Signs Temp Pulse Resp BP Pulse Ox 97.4 F L 91 H 20 169/112 94 08/21/20 05:39 08/21/20 05:39 08/21/20 05:39 08/21/20 05:39 08/21/20 05:39 Temperature -Last 24 Hours Temperature 97.4 F Temperature 97.7 F Temperature 98.0 F Temperature 98.5 F - Labs CBC & Chem 7: 08/20/20 08:37 08/20/20 08:37 Labs: Abnormal lab results 08/20/20 08/20/20 Range/Units 08:37 08:37 WBC 12.4 H (4.5-11.0) K/mm3 RDW 13.1 L (13.2-15.2) % Lymph % (Auto) 9.5 L (13.4-35.0) % [place] % (Auto) 8.8 H (0.0-7.3) % [place] # (Auto) 1.1 H (0.0-0.8) K/mm3 Seg Neutrophils % 81.1 H (40.0-70.0) % Seg Neutrophils # 10.0 H (1.8-7.7) K/mm3 Sodium 135 L (137-145) mmol/L Carbon Dioxide 20 L (22-30) mmol/L BUN 22 H (9-20) mg/dL Glucose 462 H (75-100) mg/dL
[2020-08-21] MEDS: HEPARIN 5,000 UNIT/1 ML VIAL SUB-Q SCH ×2 (09:58→22:02)
[2020-08-21] MEDS: DEXAMETHASONE 4 MG TAB PO SCH (09:59)
--- NOTE | 2020-08-21 10:05 | Progress Note ---
Assessment and Plan 50 y/o male with acute respiratory failure and COVID positive with Hypertension. 1. Prone daily and sleep prone at night 2. Continue steroids 3. Continue remdesivir 4. Will give lasix 40mg IV x1 5. No additional IVF's Will continue to follow along with you. Subjective Date of service: 08/21/20 Principal diagnosis: Covid pneumonia and respiratory failure with hypoxia Interval history: No acute events. Still on 3 liters. Objective Vital Signs - 12hr 08/20/20 08/21/20 23:28 05:39 Temperature 97.7 F 97.4 F L Pulse Rate 94 H 91 H Respiratory 20 20 Rate Blood Pressure 159/107 169/112 O2 Sat by Pulse 94 94 Oximetry Constitutional: alert Eyes: non-icteric Neck: supple Ascultation: Bilateral: rhonchi (rare) Cardiovascular: regular rate and rhythm Gastrointestinal: normoactive bowel sounds, soft, non-tender Integumentary: normal Extremities: no cyanosis Neurologic: normal mental status Psychiatric: mood appropriate CBC and BMP: 08/20/20 08:37 08/20/20 08:37 ABG, PT/INR, D-dimer: PT/INR, D-dimer PT 14.3 Sec. (12.2-14.9) 08/19/20 13:04 INR 1.13 (0.87-1.13) 08/19/20 13:04 Abnormal lab findings: Abnormal Labs 08/19/20 08/19/20 08/19/20 13:04 13:04 13:04 WBC 11.6 H RBC 5.05 H RDW 13.1 L Lymph % (Auto) [place] % (Auto) [place] # (Auto) Seg Neutrophils % Seg Neuts % (Manual) 89.0 H Lymphocytes % (Manual) 7.0 L Seg Neutrophils # Seg Neutrophils # Man 10.3 H Lymphocytes # (Manual) 0.8 L Sodium 135 L Potassium 5.1 H Carbon Dioxide BUN Glucose 324 H POC Glucose Lactic Acid 2.10 H* AST Albumin 08/19/20 08/19/20 08/20/20 13:04 14:39 08:37 WBC 12.4 H RBC RDW 13.1 L Lymph % (Auto) 9.5 L [place] % (Auto) 8.8 H [place] # (Auto) 1.1 H Seg Neutrophils % 81.1 H Seg Neuts % (Manual) Lymphocytes % (Manual) Seg Neutrophils # 10.0 H Seg Neutrophils # Man Lymphocytes # (Manual) Sodium Potassium Carbon Dioxide BUN Glucose POC Glucose 274 H Lactic Acid AST 48 H Albumin 3.0 L 08/20/20 08:37 WBC RBC RDW Lymph % (Auto) [place] % (Auto) [place] # (Auto) Seg Neutrophils % Seg Neuts % (Manual) Lymphocytes % (Manual) Seg Neutrophils # Seg Neutrophils # Man Lymphocytes # (Manual) Sodium 135 L Potassium Carbon Dioxide 20 L BUN 22 H Glucose 462 H POC Glucose Lactic Acid AST Albumin
[2020-08-21] MEDS ORDERED: FUROSEMIDE 40 MG/4 ML INJ IV NR (10:30)
[2020-08-21] MEDS: cefTRIAXone/NS 2 GM/100 ML 2 GM/100 ML BAG IV SCH (12:21)
[2020-08-21] MEDS: AZITHROMYCIN 500 MG in SODIUM CHLORIDE 0.9% 250ML 250 ML IV SCH (14:20)
[2020-08-21 14:29] LABS: Hematocrit 40.9 % (35.5-45.6); Mean Corpuscular HGB Conc 34 % (32-34); Mean Corpuscular Volume 85 fl (84-94); Platelet Count 360 K/mm3 (140-440); Red Blood Count 4.82 M/mm3 (3.65-5.03); Red Cell Distribution Width 12.7 % (13.2-15.2)
[2020-08-21 14:54] LABS: Alanine Aminotransferase 42 units/L (7-56); BUN/Creatinine Ratio 24; Blood Urea Nitrogen 24 mg/dL (9-20); C-Reactive Protein 4.8 mg/dL (0.00-1.30); Calcium 8.9 mg/dL (8.4-10.2); Hemolysis Index 5
[2020-08-21 15:10] LABS: Bilirubin,Direct < 0.2 mg/dL (0-0.2)
--- NOTE | 2020-08-21 15:33 | Progress Note ---
Assessment and Plan Assessment and plan: --Severe hyperglycemia;/diabetes mellitus probably secondary to steroid use, and underlying diabetes Accu-Chek sliding scale coverage ADA diet Long-acting insulin, Novolin 70/30 10 units 1 dose now, 15 units twice a day check A1c, Diabetic education, diabetic diet education Possible home health nurse at time of discharge For diabetes management --Hiccups; supportive care. Becki Does not have renal failure or uremia Closely monitor -- Sepsis Current Visit: Yes Status: Acute Plan to address problem: Sepsis secondary to COVID-19 pneumonia Treat the underlying cause, supportive care --Acute hypoxemic respiratory failure Current Visit: Yes Status: Acute Plan to address problem: Oxygen titrate O2 sats to more than 90% BiPAP as needed -- Coronavirus infection; Current Visit: Yes Status: Acute Plan to address problem: History of positive Covid prior to admission No Covid test done We will get a repeat coronavirus PCR ID following, inflammatory markers IV steroids, remdesivir Sedation per protocol --Bilateral pneumonia Current Visit: Yes Status: Acute Plan to address problem: Empiric antibiotics, follow cultures -- Hypertension moderate control Current Visit: Yes Status: Acute Plan to address problem: Monitor blood pressure every shift, continue medical management --DVT prophylaxis Current Visit: Yes Status: Acute Plan to address problem: SCD Closely monitor patient and adjust management as needed Plan of care reviewed with the patient and the nurse History Interval history: I have seen and examined the patient at the time bedside Patient has very high blood sugars, no known history of diabetes mellitus Probably secondary to steroids or underlying diabetes Patient has no new complaints Vital signs noted Patient complains of some hiccups Hospitalist Physical - Constitutional Vitals: Temp Pulse Resp BP Pulse Ox 97.4 F L 92 H 20 130/82 94 08/21/20 05:39 08/21/20 10:21 08/21/20 05:39 08/21/20 10:21 08/21/20 05:39 General appearance: Present: mild distress, well-nourished - EENT Eyes: Present: PERRL, EOM intact - Neck Neck: Present: supple, normal ROM - Respiratory Respiratory effort: normal Respiratory: bilateral: diminished, negative: rales, rhonchi, wheezing - Cardiovascular Rhythm: regular Heart Sounds: Present: S1 & S2 - Extremities Extremities: no ischemia, No edema - Abdominal General gastrointestinal: soft, non-tender, non-distended, normal bowel sounds - Integumentary Integumentary: Present: clear, warm - Psychiatric Psychiatric: appropriate mood/affect, cooperative - Neurologic Neurologic: moves all extremities Results - Labs CBC & Chem 7: 08/21/20 13:46 08/21/20 13:46 Labs: Laboratory Last Values WBC 10.6 K/mm3 (4.5-11.0) 08/21/20 13:46 RBC 4.82 M/mm3 (3.65-5.03) 08/21/20 13:46 Hgb 14.0 gm/dl (11.8-15.2) 08/21/20 13:46 Hct 40.9 % (35.5-45.6) 08/21/20 13:46 MCV 85 fl (84-94) 08/21/20 13:46 MCH 29 pg (28-32) 08/21/20 13:46 MCHC 34 % (32-34) 08/21/20 13:46 RDW 12.7 % (13.2-15.2) L 08/21/20 13:46 Plt Count 360 K/mm3 (140-440) 08/21/20 13:46 Lymph % (Auto) 9.5 % (13.4-35.0) L 08/20/20 08:37 [place] % (Auto) 8.8 % (0.0-7.3) H 08/20/20 08:37 Eos % (Auto) 0.0 % (0.0-4.3) 08/20/20 08:37 Baso % (Auto) 0.6 % (0.0-1.8) 08/20/20 08:37 Lymph # (Auto) 1.2 K/mm3 (1.2-5.4) 08/20/20 08:37 [place] # (Auto) 1.1 K/mm3 (0.0-0.8) H 08/20/20 08:37 Eos # (Auto) 0.0 K/mm3 (0.0-0.4) 08/20/20 08:37 Baso # (Auto) 0.1 K/mm3 (0.0-0.1) 08/20/20 08:37 Add Manual Diff Complete 08/19/20 13:04 Total Counted 100 08/19/20 13:04 Seg Neutrophils % 81.1 % (40.0-70.0) H 08/20/20 08:37 Seg Neuts % (Manual) 89.0 % (40.0-70.0) H 08/19/20 13:04 Band Neutrophils % 1.0 % 08/19/20 13:04 Lymphocytes % (Manual) 7.0 % (13.4-35.0) L 08/19/20 13:04 Monocytes % (Manual) 3.0 % (0.0-7.3) 08/19/20 13:04 Nucleated RBC % Not Reportable 08/19/20 13:04 Seg Neutrophils # 10.0 K/mm3 (1.8-7.7) H 08/20/20 08:37 Seg Neutrophils # Man 10.3 K/mm3 (1.8-7.7) H 08/19/20 13:04 Band Neutrophils # 0.1 K/mm3 08/19/20 13:04 Lymphocytes # (Manual) 0.8 K/mm3 (1.2-5.4) L 08/19/20 13:04 Abs React Lymphs (Man) 0.0 K/mm3 08/19/20 13:04 Monocytes # (Manual) 0.3 K/mm3 (0.0-0.8) 08/19/20 13:04 Eosinophils # (Manual) 0.0 K/mm3 (0.0-0.4) 08/19/20 13:04 Basophils # (Manual) 0.0 K/mm3 (0.0-0.1) 08/19/20 13:04 Metamyelocytes # 0.0 K/mm3 08/19/20 13:04 Myelocytes # 0.0 K/mm3 08/19/20 13:04 Promyelocytes # 0.0 K/mm3 08/19/20 13:04 Blast Cells # 0.0 K/mm3 08/19/20 13:04 WBC Morphology Not Reportable 08/19/20 13:04 Hypersegmented Neuts Not Reportable 08/19/20 13:04 Hyposegmented Neuts Not Reportable 08/19/20 13:04 Hypogranular Neuts Not Reportable 08/19/20 13:04 Smudge Cells Not Reportable 08/19/20 13:04 Toxic Granulation Not Reportable 08/19/20 13:04 Toxic Vacuolation Not Reportable 08/19/20 13:04 Dohle Bodies Not Reportable 08/19/20 13:04 [place]-Huet Anomaly Not Reportable 08/19/20 13:04 Tammy Rods Not Reportable 08/19/20 13:04 Platelet Estimate Consistent w auto 08/19/20 13:04 Clumped Platelets Not Reportable 08/19/20 13:04 Plt Clumps, EDTA Not Reportable 08/19/20 13:04 Large Platelets Not Reportable 08/19/20 13:04 Giant Platelets Not Reportable 08/19/20 13:04 Platelet Satelliting Not Reportable 08/19/20 13:04 Plt Morphology Comment Not Reportable 08/19/20 13:04 RBC Morphology Normal 08/19/20 13:04 Dimorphic RBCs Not Reportable 08/19/20 13:04 Polychromasia Not Reportable 08/19/20 13:04 Hypochromasia Not Reportable 08/19/20 13:04 Poikilocytosis Not Reportable 08/19/20 13:04 Anisocytosis Not Reportable 08/19/20 13:04 Microcytosis Not Reportable 08/19/20 13:04 Macrocytosis Not Reportable 08/19/20 13:04 Spherocytes Not Reportable 08/19/20 13:04 Pappenheimer Bodies Not Reportable 08/19/20 13:04 Sickle Cells Not Reportable 08/19/20 13:04 Target Cells Not Reportable 08/19/20 13:04 Tear Drop Cells Not Reportable 08/19/20 13:04 Ovalocytes Not Reportable 08/19/20 13:04 Helmet Cells Not Reportable 08/19/20 13:04 [place] Bodies Not Reportable 08/19/20 13:04 [place] Rings Not Reportable 08/19/20 13:04 [place] Cells Not Reportable 08/19/20 13:04 Bite Cells Not Reportable 08/19/20 13:04 Crenated Cell Not Reportable 08/19/20 13:04 Elliptocytes Not Reportable 08/19/20 13:04 Acanthocytes (Spur) Not Reportable 08/19/20 13:04 Rouleaux Not Reportable 08/19/20 13:04 Hemoglobin C Crystals Not Reportable 08/19/20 13:04 Schistocytes Not Reportable 08/19/20 13:04 Malaria parasites Not Reportable 08/19/20 13:04 Sunny Bodies Not Reportable 08/19/20 13:04 Hem Pathologist Commnt No 08/19/20 13:04 PT 14.3 Sec. (12.2-14.9) 08/19/20 13:04 INR 1.13 (0.87-1.13) 08/19/20 13:04 APTT 29.2 Sec. (24.2-36.6) 08/19/20 13:04 D-Dimer 433.44 ng/mlDDU (0-234) H 08/21/20 13:46 Sodium 132 mmol/L (137-145) L 08/21/20 13:46 Potassium 4.2 mmol/L (3.6-5.0) 08/21/20 13:46 Chloride 94.6 mmol/L (98-107) L 08/21/20 13:46 Carbon Dioxide 25 mmol/L (22-30) 08/21/20 13:46 Anion Gap 17 mmol/L 08/21/20 13:46 BUN 24 mg/dL (9-20) H 08/21/20 13:46 Creatinine 1.0 mg/dL (0.8-1.3) 08/21/20 13:46 Estimated GFR > 60 ml/min 08/21/20 13:46 BUN/Creatinine Ratio 24 % 08/21/20 13:46 Glucose 570 mg/dL (75-100) H* 08/21/20 13:46 POC Glucose 274 mg/dL (70-105) H 08/19/20 14:39 Lactic Acid 1.80 mmol/L (0.7-2.0) 08/19/20 20:49 Calcium 8.9 mg/dL (8.4-10.2) 08/21/20 13:46 Ferritin 1365.0 ng/mL (30.0-300.0) H 08/21/20 13:46 Total Bilirubin 0.30 mg/dL (0.1-1.2) 08/21/20 13:46 Direct Bilirubin < 0.2 mg/dL (0-0.2) 08/21/20 13:46 Indirect Bilirubin 0.1 mg/dL 08/21/20 13:46 AST 25 units/L (5-40) 08/21/20 13:46 ALT 42 units/L (7-56) 08/21/20 13:46 Alkaline Phosphatase 76 units/L (35-129) 08/21/20 13:46 Lactate Dehydrogenase 416 units/L (91-180) H 08/21/20 13:46 C-Reactive Protein 4.80 mg/dL (0.00-1.30) H 08/21/20 13:46 Total Protein 6.3 g/dL (6.3-8.2) 08/21/20 13:46 Albumin 3.0 g/dL (3.9-5) L 08/21/20 13:46 Albumin/Globulin Ratio 0.9 % 08/21/20 13:46 Urine Color Yellow (Yellow) 08/19/20 20:35 Urine Turbidity Clear (Clear) 08/19/20 20:35 Urine pH 6.0 (5.0-7.0) 08/19/20 20:35 Ur Specific [place] 1.026 (1.003-1.030) 08/19/20 20:35 Urine Protein >500 mg/dL (Negative) 08/19/20 20:35 Urine Glucose (UA) >=500 mg/dL (Negative) 08/19/20 20:35 Urine Ketones 20 mg/dL (Negative) 08/19/20 20:35 Urine Blood Neg (Negative) 08/19/20 20:35 Urine Nitrite Neg (Negative) 08/19/20 20:35 Urine Bilirubin Neg (Negative) 08/19/20 20:35 Urine Urobilinogen < 2.0 mg/dL (<2.0) 08/19/20 20:35 Ur Leukocyte Esterase Neg (Negative) 08/19/20 20:35 Urine WBC (Auto) 2.0 /HPF (0.0-6.0) 08/19/20 20:35 Urine RBC (Auto) 1.0 /HPF (0.0-6.0) 08/19/20 20:35 U Epithel Cells (Auto) < 1.0 /HPF (0-13.0) 08/19/20 20:35 Blood Type B POSITIVE 08/19/20 15:01 Antibody Screen Negative 08/19/20 15:01 Microbiology: Microbiology 08/19/20 13:04 Peripheral/Venous Blood Culture - Preliminary NO GROWTH AFTER 48 HOURS 08/19/20 13:04 Peripheral/Venous Blood Culture - Preliminary NO GROWTH AFTER 48 HOURS Luis/IV: Voiding Method Toilet IV Catheter Type [Left Forearm Peripheral IV ] Active Medications - Current Medications Current Medications: Generic Name Dose Route Start Last Admin Trade Name Freq PRN Reason Stop Dose Admin Acetaminophen 650 mg 08/19/20 14:44 Acetaminophen 325 Mg Tab PO Q4H PRN Pain MILD(1-3)/Fever >100.5/MEIER Albuterol 2.5 mg 08/19/20 14:44 Albuterol 2.5 Mg/3 Ml Nebu IH Q4H PRN Shortness Of Breath Benzonatate 100 mg 08/20/20 14:00 08/21/20 12:21 Benzonatate 100 Mg Cap PO 100 mg Q8HR TARA Administration Chlorpromazine HCl 10 mg 08/21/20 15:31 Chlorpromazine 10 Mg Tab PO Q4H PRN Hiccups Dexamethasone 6 mg 08/20/20 12:00 08/21/20 09:59 Dexamethasone 4 Mg Tab PO 08/28/20 10:01 6 mg Q24HR TARA Administration Heparin Sodium (Porcine) 5,000 unit 08/19/20 22:00 08/21/20 09:58 Heparin 5,000 Unit/1 Ml Vial SUB-Q 5,000 unit Q12HR TARA Administration Hydromorphone HCl 0.25 mg 08/19/20 14:44 Hydromorphone 1 Mg/1 Ml Inj IV Q4H PRN Pain, Moderate (4-6) Ceftriaxone Sodium 2 gm in 100 mls @ 200 mls/hr 08/20/20 13:00 08/21/20 12:21 Rocephin/Ns 2 Gm/100 Ml IV 200 mls/hr Q24H TARA Administration Protocol Azithromycin 500 mg/ Sodium 250 mls @ 250 mls/hr 08/20/20 14:00 08/21/20 14:20 Chloride IV 250 mls/hr Q24H TARA Administration Protocol REMDESIVIR 100 mg/ Sodium 250 mls @ 500 mls/hr 08/21/20 21:00 Chloride IV 08/24/20 21:29 Q24HR@2100 TARA Insulin Human Lispro 0 unit 08/21/20 16:30 Insulin Lispro 100 Unit/Ml Vial 3 Ml SUB-Q ACHS TARA Protocol Labetalol HCl 10 mg 08/21/20 15:28 Labetalol 20 Mg/4 Ml Inj IV Q4H PRN Hypertension Ondansetron HCl 4 mg 08/19/20 14:44 Ondansetron 4 Mg/2 Ml Inj IV Q8H PRN Nausea And Vomiting Sodium Chloride 10 ml 08/19/20 22:00 08/21/20 12:21 Sodium Chloride 0.9% 10 Ml Flush Syringe IV 10 ml BID TARA Administration Sodium Chloride 10 ml 08/19/20 14:44 Sodium Chloride 0.9% 10 Ml Flush Syringe IV PRN PRN LINE FLUSH Sodium Chloride 50 ml 08/20/20 13:00 08/20/20 13:47 Sodium Chloride 0.9% 50 Ml Ivpb IV 08/24/20 21:31 50 ml Q24HR@2130 TARA Administration
[2020-08-21] MEDS: INSULIN LISPRO 100 UNIT/ML VIAL 3 mL SUB-Q SCH (17:31)
[2020-08-21] MEDS ORDERED: INSULIN NPH/REGULAR 70/30 INJ SUB-Q ONE (18:30)
[2020-08-21] MEDS: REMDESIVIR 100 MG in SODIUM CHLORIDE 0.9% 250ML 250 ML IV SCH (22:01)
[2020-08-21] MEDS: SODIUM CHLORIDE 0.9% 50 ML IVPB IV SCH (22:02)
[2020-08-22] MEDS: BENZONATATE 100 MG CAP PO SCH ×3 (05:20→22:02)
[2020-08-22] MEDS: INSULIN LISPRO 100 UNIT/ML VIAL 3 mL SUB-Q SCH ×5 (05:33→22:03)
--- NOTE | 2020-08-22 07:19 | Progress Note ---
Assessment and Plan Cultures: Blood culture no growth so far. A/P: 50-year-old man past medical history hypertension admitted to the hospital with COVID-19 #Severe COVID-19 pneumonia: Patient presented with 4 days of symptoms, chest x- ray with diffuse bilateral infiltrates, admission O2 sats 88% on room air #Acute hypoxemic respiratory failure: Likely secondary to COVID-19 infection. Remains on 3L NC #Hypertension #Elevated lactate: Likely due to pneumonia, blood cultures negative, urinalysis negative. #Diabetes mellitus: Uncontrolled. A1c 12. Recs: -Follow-up SARS Covid 2 IgG and procalcitonin -Continue dexamethasone 6 mg IV/PO daily for 10 days -D2 of 10 -Continue remdesivir total 5 days monitor renal and hepatic function while receiving.-D2 of 5 -Continue ceftriaxone 2 gm IV qday and azithromycin 500 mg PO qday, if procalcitonin <0.25 ng/mL will stop antibiotics, procalcitonin not available -Proning as able -Anticoagulation per hospital protocol will follow MD [facility] ([facility]) Office [phone] Subjective Date of service: 08/22/20 Principal diagnosis: Covid pneumonia and respiratory failure with hypoxia Interval history: Remains afebrile, on 3 L nasal cannula. No acute events overnight. Objective - Exam Narrative Exam: Deferred to avoid transmission of COVID-19 - Constitutional Vitals: Vital Signs Temp Pulse Resp BP Pulse Ox 97.8 F 89 20 167/110 94 08/22/20 04:30 08/22/20 04:30 08/22/20 04:30 08/22/20 04:30 08/22/20 04:30 Temperature -Last 24 Hours Temperature 97.8 F Temperature 98.7 F Temperature 98.1 F Temperature 98.1 F - Labs CBC & Chem 7: 08/21/20 13:46 08/21/20 13:46 Labs: Abnormal lab results 08/21/20 08/21/20 08/21/20 Range/Units 13:46 13:46 13:46 RDW (13.2-15.2) % D-Dimer 433.44 H (0-234) ng/mlDDU Sodium (137-145) mmol/L Chloride (98-107) mmol/L BUN (9-20) mg/dL Glucose (75-100) mg/dL POC Glucose (70-105) mg/dL Hemoglobin A1c (4-6) % Ferritin 1365.0 H (30.0-300.0) ng/mL Lactate Dehydrogenase (91-180) units/L C-Reactive Protein (0.00-1.30) mg/dL Albumin 3.0 L (3.9-5) g/dL 08/21/20 08/21/20 08/21/20 Range/Units 13:46 13:46 13:46 RDW 12.7 L (13.2-15.2) % D-Dimer (0-234) ng/mlDDU Sodium 132 L (137-145) mmol/L Chloride 94.6 L (98-107) mmol/L BUN 24 H (9-20) mg/dL Glucose 570 H* (75-100) mg/dL POC Glucose (70-105) mg/dL Hemoglobin A1c (4-6) % Ferritin (30.0-300.0) ng/mL Lactate Dehydrogenase 416 H (91-180) units/L C-Reactive Protein 4.80 H (0.00-1.30) mg/dL Albumin (3.9-5) g/dL 08/21/20 08/21/20 08/21/20 Range/Units 13:46 17:27 21:49 RDW (13.2-15.2) % D-Dimer (0-234) ng/mlDDU Sodium (137-145) mmol/L Chloride (98-107) mmol/L BUN (9-20) mg/dL Glucose (75-100) mg/dL POC Glucose 584 H 514 H (70-105) mg/dL Hemoglobin A1c 12.5 H (4-6) % Ferritin (30.0-300.0) ng/mL Lactate Dehydrogenase (91-180) units/L C-Reactive Protein (0.00-1.30) mg/dL Albumin (3.9-5) g/dL 08/22/20 Range/Units 05:28 RDW (13.2-15.2) % D-Dimer (0-234) ng/mlDDU Sodium (137-145) mmol/L Chloride (98-107) mmol/L BUN (9-20) mg/dL Glucose (75-100) mg/dL POC Glucose 389 H (70-105) mg/dL Hemoglobin A1c (4-6) % Ferritin (30.0-300.0) ng/mL Lactate Dehydrogenase (91-180) units/L C-Reactive Protein (0.00-1.30) mg/dL Albumin (3.9-5) g/dL
[2020-08-22] MEDS ORDERED: INSULIN NPH/REGULAR 70/30 INJ SUB-Q SCH ×2 (08:00)
--- NOTE | 2020-08-22 08:30 | Progress Note ---
Assessment and Plan 50 y/o male with acute respiratory failure and COVID positive with Hypertension. 08/22/2020: Wean FiO2 as tolerated for sats >88%. Continue steroids and remdesivir. Abx therapy per ID. Would like to give additional lasix but will ask primary to follow up on labs to see if it is safe to do so. Will continue to follow. Will ask nursing to please document if proning is being done or not. 1. Prone daily and sleep prone at night 2. Continue steroids 3. Continue remdesivir 4. Will give lasix 40mg IV x1 5. No additional IVF's Will continue to follow along with you. Subjective Date of service: 08/22/20 Principal diagnosis: Covid pneumonia and respiratory failure with hypoxia Interval history: Down to 2 liters NC based on last night's RT documentation. I/O not accurate, per report took in over 3 liters. Did get lasix yesterday. Still no documentation of proning. Objective Vital Signs - 12hr 08/21/20 08/21/20 08/22/20 21:12 22:27 04:30 Temperature 98.7 F 97.8 F Pulse Rate 88 89 Respiratory 20 20 Rate Blood Pressure 132/93 167/110 O2 Sat by Pulse 99 96 94 Oximetry Patient not examined in person to preserve PPE during the global pandemic of COVID 19. Exam documented below as pulled over into the template from a prior exam. Constitutional: alert Eyes: non-icteric Neck: supple Ascultation: Bilateral: rhonchi (rare) Cardiovascular: regular rate and rhythm Gastrointestinal: normoactive bowel sounds, soft, non-tender Integumentary: normal Extremities: no cyanosis Neurologic: normal mental status Psychiatric: mood appropriate CBC and BMP: 08/21/20 13:46 08/21/20 13:46 ABG, PT/INR, D-dimer: PT/INR, D-dimer PT 14.3 Sec. (12.2-14.9) 08/19/20 13:04 INR 1.13 (0.87-1.13) 08/19/20 13:04 D-Dimer 433.44 ng/mlDDU (0-234) H 08/21/20 13:46 Abnormal lab findings: Abnormal Labs 08/19/20 08/19/20 08/19/20 13:04 13:04 13:04 WBC 11.6 H RBC 5.05 H RDW 13.1 L Lymph % (Auto) Stokes % (Auto) Stokes # (Auto) Seg Neutrophils % Seg Neuts % (Manual) 89.0 H Lymphocytes % (Manual) 7.0 L Seg Neutrophils # Seg Neutrophils # Man 10.3 H Lymphocytes # (Manual) 0.8 L D-Dimer Sodium 135 L Potassium 5.1 H Chloride Carbon Dioxide BUN Glucose 324 H POC Glucose Hemoglobin A1c Lactic Acid 2.10 H* Ferritin AST Lactate Dehydrogenase C-Reactive Protein Albumin 08/19/20 08/19/20 08/20/20 13:04 14:39 08:37 WBC 12.4 H RBC RDW 13.1 L Lymph % (Auto) 9.5 L Stokes % (Auto) 8.8 H Stokes # (Auto) 1.1 H Seg Neutrophils % 81.1 H Seg Neuts % (Manual) Lymphocytes % (Manual) Seg Neutrophils # 10.0 H Seg Neutrophils # Man Lymphocytes # (Manual) D-Dimer Sodium Potassium Chloride Carbon Dioxide BUN Glucose POC Glucose 274 H Hemoglobin A1c Lactic Acid Ferritin AST 48 H Lactate Dehydrogenase C-Reactive Protein Albumin 3.0 L 08/20/20 08/21/20 08/21/20 08:37 13:46 13:46 WBC RBC RDW Lymph % (Auto) Stokes % (Auto) Stokes # (Auto) Seg Neutrophils % Seg Neuts % (Manual) Lymphocytes % (Manual) Seg Neutrophils # Seg Neutrophils # Man Lymphocytes # (Manual) D-Dimer 433.44 H Sodium 135 L Potassium Chloride Carbon Dioxide 20 L BUN 22 H Glucose 462 H POC Glucose Hemoglobin A1c Lactic Acid Ferritin AST Lactate Dehydrogenase C-Reactive Protein Albumin 3.0 L 08/21/20 08/21/20 08/21/20 13:46 13:46 13:46 WBC RBC RDW Lymph % (Auto) Stokes % (Auto) Stokes # (Auto) Seg Neutrophils % Seg Neuts % (Manual) Lymphocytes % (Manual) Seg Neutrophils # Seg Neutrophils # Man Lymphocytes # (Manual) D-Dimer Sodium 132 L Potassium Chloride 94.6 L Carbon Dioxide BUN 24 H Glucose 570 H* POC Glucose Hemoglobin A1c Lactic Acid Ferritin 1365.0 H AST Lactate Dehydrogenase 416 H C-Reactive Protein 4.80 H Albumin 08/21/20 08/21/20 08/21/20 13:46 13:46 17:27 WBC RBC RDW 12.7 L Lymph % (Auto) Stokes % (Auto) Stokes # (Auto) Seg Neutrophils % Seg Neuts % (Manual) Lymphocytes % (Manual) Seg Neutrophils # Seg Neutrophils # Man Lymphocytes # (Manual) D-Dimer Sodium Potassium Chloride Carbon Dioxide BUN Glucose POC Glucose 584 H Hemoglobin A1c 12.5 H Lactic Acid Ferritin AST Lactate Dehydrogenase C-Reactive Protein Albumin 08/21/20 08/22/20 08/22/20 21:49 05:28 08:05 WBC RBC RDW Lymph % (Auto) Stokes % (Auto) Stokes # (Auto) Seg Neutrophils % Seg Neuts % (Manual) Lymphocytes % (Manual) Seg Neutrophils # Seg Neutrophils # Man Lymphocytes # (Manual) D-Dimer Sodium Potassium Chloride Carbon Dioxide BUN Glucose POC Glucose 514 H 389 H 315 H Hemoglobin A1c Lactic Acid Ferritin AST Lactate Dehydrogenase C-Reactive Protein Albumin
[2020-08-22] MEDS: DEXAMETHASONE 4 MG TAB PO SCH (09:41)
[2020-08-22] MEDS: HEPARIN 5,000 UNIT/1 ML VIAL SUB-Q SCH ×2 (09:41→22:02)
--- NOTE | 2020-08-22 10:21 | Progress Note ---
Assessment and Plan Assessment and plan: --Severe hyperglycemia;/diabetes mellitus probably secondary to steroid use, and underlying diabetes Accu-Chek sliding scale coverage ADA diet Long-acting insulin, Novolin 70/30 increase to 30 units twice a day check A1c 12.5, Diabetic education, diabetic diet education Possible home health nurse at time of discharge For diabetes management --Hiccups; supportive care. Becki Does not have renal failure or uremia Closely monitor -- Sepsis Current Visit: Yes Status: Acute Plan to address problem: Sepsis secondary to COVID-19 pneumonia Treat the underlying cause, supportive care --Acute hypoxemic respiratory failure Current Visit: Yes Status: Acute Plan to address problem: Oxygen titrate O2 sats to more than 90% BiPAP as needed -- Coronavirus infection; Current Visit: Yes Status: Acute Plan to address problem: History of positive Covid prior to admission No Covid test done We will get a repeat coronavirus PCR ID following, inflammatory markers IV steroids, remdesivir Prone position as tolerated --Bilateral pneumonia Current Visit: Yes Status: Acute Plan to address problem: Empiric antibiotics, follow cultures -- Hypertension moderate control Current Visit: Yes Status: Acute Plan to address problem: Monitor blood pressure every shift, continue medical management --DVT prophylaxis Current Visit: Yes Status: Acute Plan to address problem: SCD Closely monitor patient and adjust management as needed Plan of care reviewed with the patient and the nurse History Interval history: I have seen and examined the patient at the bedside Patient's chart and medications reviewed Isolation precautions and strict PPE protocols observed Patient continues to have mild hiccups Blood sugars remain uncontrolled due to diabetes mellitus As well as steroids Vital signs noted Hospitalist Physical - Constitutional Vitals: Temp Pulse Resp BP Pulse Ox 97.8 F 89 20 167/110 96 08/22/20 04:30 08/22/20 04:30 08/22/20 04:30 08/22/20 04:30 08/22/20 09:10 General appearance: Present: mild distress, well-nourished - EENT Eyes: Present: PERRL, EOM intact - Neck Neck: Present: supple, normal ROM - Respiratory Respiratory effort: normal Respiratory: bilateral: diminished, rhonchi, negative: rales, wheezing - Cardiovascular Rhythm: regular Heart Sounds: Present: S1 & S2 - Extremities Extremities: no ischemia, No edema - Abdominal General gastrointestinal: soft, non-tender, non-distended, normal bowel sounds - Integumentary Integumentary: Present: clear, warm - Psychiatric Psychiatric: appropriate mood/affect, cooperative - Neurologic Neurologic: CNII-XII intact, moves all extremities Results - Labs CBC & Chem 7: 08/21/20 13:46 08/21/20 13:46 Labs: Laboratory Last Values WBC 10.6 K/mm3 (4.5-11.0) 08/21/20 13:46 RBC 4.82 M/mm3 (3.65-5.03) 08/21/20 13:46 Hgb 14.0 gm/dl (11.8-15.2) 08/21/20 13:46 Hct 40.9 % (35.5-45.6) 08/21/20 13:46 MCV 85 fl (84-94) 08/21/20 13:46 MCH 29 pg (28-32) 08/21/20 13:46 MCHC 34 % (32-34) 08/21/20 13:46 RDW 12.7 % (13.2-15.2) L 08/21/20 13:46 Plt Count 360 K/mm3 (140-440) 08/21/20 13:46 Lymph % (Auto) 9.5 % (13.4-35.0) L 08/20/20 08:37 [place] % (Auto) 8.8 % (0.0-7.3) H 08/20/20 08:37 Eos % (Auto) 0.0 % (0.0-4.3) 08/20/20 08:37 Baso % (Auto) 0.6 % (0.0-1.8) 08/20/20 08:37 Lymph # (Auto) 1.2 K/mm3 (1.2-5.4) 08/20/20 08:37 [place] # (Auto) 1.1 K/mm3 (0.0-0.8) H 08/20/20 08:37 Eos # (Auto) 0.0 K/mm3 (0.0-0.4) 08/20/20 08:37 Baso # (Auto) 0.1 K/mm3 (0.0-0.1) 08/20/20 08:37 Add Manual Diff Complete 08/19/20 13:04 Total Counted 100 08/19/20 13:04 Seg Neutrophils % 81.1 % (40.0-70.0) H 08/20/20 08:37 Seg Neuts % (Manual) 89.0 % (40.0-70.0) H 08/19/20 13:04 Band Neutrophils % 1.0 % 08/19/20 13:04 Lymphocytes % (Manual) 7.0 % (13.4-35.0) L 08/19/20 13:04 Monocytes % (Manual) 3.0 % (0.0-7.3) 08/19/20 13:04 Nucleated RBC % Not Reportable 08/19/20 13:04 Seg Neutrophils # 10.0 K/mm3 (1.8-7.7) H 08/20/20 08:37 Seg Neutrophils # Man 10.3 K/mm3 (1.8-7.7) H 08/19/20 13:04 Band Neutrophils # 0.1 K/mm3 08/19/20 13:04 Lymphocytes # (Manual) 0.8 K/mm3 (1.2-5.4) L 08/19/20 13:04 Abs React Lymphs (Man) 0.0 K/mm3 08/19/20 13:04 Monocytes # (Manual) 0.3 K/mm3 (0.0-0.8) 08/19/20 13:04 Eosinophils # (Manual) 0.0 K/mm3 (0.0-0.4) 08/19/20 13:04 Basophils # (Manual) 0.0 K/mm3 (0.0-0.1) 08/19/20 13:04 Metamyelocytes # 0.0 K/mm3 08/19/20 13:04 Myelocytes # 0.0 K/mm3 08/19/20 13:04 Promyelocytes # 0.0 K/mm3 08/19/20 13:04 Blast Cells # 0.0 K/mm3 08/19/20 13:04 WBC Morphology Not Reportable 08/19/20 13:04 Hypersegmented Neuts Not Reportable 08/19/20 13:04 Hyposegmented Neuts Not Reportable 08/19/20 13:04 Hypogranular Neuts Not Reportable 08/19/20 13:04 Smudge Cells Not Reportable 08/19/20 13:04 Toxic Granulation Not Reportable 08/19/20 13:04 Toxic Vacuolation Not Reportable 08/19/20 13:04 Dohle Bodies Not Reportable 08/19/20 13:04 Pelger-Huet Anomaly Not Reportable 08/19/20 13:04 Tammy Rods Not Reportable 08/19/20 13:04 Platelet Estimate Consistent w auto 08/19/20 13:04 Clumped Platelets Not Reportable 08/19/20 13:04 Plt Clumps, EDTA Not Reportable 08/19/20 13:04 Large Platelets Not Reportable 08/19/20 13:04 Giant Platelets Not Reportable 08/19/20 13:04 Platelet Satelliting Not Reportable 08/19/20 13:04 Plt Morphology Comment Not Reportable 08/19/20 13:04 RBC Morphology Normal 08/19/20 13:04 Dimorphic RBCs Not Reportable 08/19/20 13:04 Polychromasia Not Reportable 08/19/20 13:04 Hypochromasia Not Reportable 08/19/20 13:04 Poikilocytosis Not Reportable 08/19/20 13:04 Anisocytosis Not Reportable 08/19/20 13:04 Microcytosis Not Reportable 08/19/20 13:04 Macrocytosis Not Reportable 08/19/20 13:04 Spherocytes Not Reportable 08/19/20 13:04 Pappenheimer Bodies Not Reportable 08/19/20 13:04 Sickle Cells Not Reportable 08/19/20 13:04 Target Cells Not Reportable 08/19/20 13:04 Tear Drop Cells Not Reportable 08/19/20 13:04 Ovalocytes Not Reportable 08/19/20 13:04 Helmet Cells Not Reportable 08/19/20 13:04 [place] Bodies Not Reportable 08/19/20 13:04 [place] Rings Not Reportable 08/19/20 13:04 [place] Cells Not Reportable 08/19/20 13:04 Bite Cells Not Reportable 08/19/20 13:04 Crenated Cell Not Reportable 08/19/20 13:04 Elliptocytes Not Reportable 08/19/20 13:04 Acanthocytes (Spur) Not Reportable 08/19/20 13:04 Rouleaux Not Reportable 08/19/20 13:04 Hemoglobin C Crystals Not Reportable 08/19/20 13:04 Schistocytes Not Reportable 08/19/20 13:04 Malaria parasites Not Reportable 08/19/20 13:04 Sunny Bodies Not Reportable 08/19/20 13:04 Hem Pathologist Commnt No 08/19/20 13:04 PT 14.3 Sec. (12.2-14.9) 08/19/20 13:04 INR 1.13 (0.87-1.13) 08/19/20 13:04 APTT 29.2 Sec. (24.2-36.6) 08/19/20 13:04 D-Dimer 433.44 ng/mlDDU (0-234) H 08/21/20 13:46 Sodium 132 mmol/L (137-145) L 08/21/20 13:46 Potassium 4.2 mmol/L (3.6-5.0) 08/21/20 13:46 Chloride 94.6 mmol/L (98-107) L 08/21/20 13:46 Carbon Dioxide 25 mmol/L (22-30) 08/21/20 13:46 Anion Gap 17 mmol/L 08/21/20 13:46 BUN 24 mg/dL (9-20) H 08/21/20 13:46 Creatinine 1.0 mg/dL (0.8-1.3) 08/21/20 13:46 Estimated GFR > 60 ml/min 08/21/20 13:46 BUN/Creatinine Ratio 24 % 08/21/20 13:46 Glucose 570 mg/dL (75-100) H* 08/21/20 13:46 POC Glucose 315 mg/dL (70-105) H 08/22/20 08:05 Hemoglobin A1c 12.5 % (4-6) H 08/21/20 13:46 Lactic Acid 1.80 mmol/L (0.7-2.0) 08/19/20 20:49 Calcium 8.9 mg/dL (8.4-10.2) 08/21/20 13:46 Ferritin 1365.0 ng/mL (30.0-300.0) H 08/21/20 13:46 Total Bilirubin 0.30 mg/dL (0.1-1.2) 08/21/20 13:46 Direct Bilirubin < 0.2 mg/dL (0-0.2) 08/21/20 13:46 Indirect Bilirubin 0.1 mg/dL 08/21/20 13:46 AST 25 units/L (5-40) 08/21/20 13:46 ALT 42 units/L (7-56) 08/21/20 13:46 Alkaline Phosphatase 76 units/L (35-129) 08/21/20 13:46 Lactate Dehydrogenase 416 units/L (91-180) H 08/21/20 13:46 C-Reactive Protein 4.80 mg/dL (0.00-1.30) H 08/21/20 13:46 Total Protein 6.3 g/dL (6.3-8.2) 08/21/20 13:46 Albumin 3.0 g/dL (3.9-5) L 08/21/20 13:46 Albumin/Globulin Ratio 0.9 % 08/21/20 13:46 Urine Color Yellow (Yellow) 08/19/20 20:35 Urine Turbidity Clear (Clear) 08/19/20 20:35 Urine pH 6.0 (5.0-7.0) 08/19/20 20:35 Ur Specific [place] 1.026 (1.003-1.030) 08/19/20 20:35 Urine Protein >500 mg/dL (Negative) 08/19/20 20:35 Urine Glucose (UA) >=500 mg/dL (Negative) 08/19/20 20:35 Urine Ketones 20 mg/dL (Negative) 08/19/20 20:35 Urine Blood Neg (Negative) 08/19/20 20:35 Urine Nitrite Neg (Negative) 08/19/20 20:35 Urine Bilirubin Neg (Negative) 08/19/20 20:35 Urine Urobilinogen < 2.0 mg/dL (<2.0) 08/19/20 20:35 Ur Leukocyte Esterase Neg (Negative) 08/19/20 20:35 Urine WBC (Auto) 2.0 /HPF (0.0-6.0) 08/19/20 20:35 Urine RBC (Auto) 1.0 /HPF (0.0-6.0) 08/19/20 20:35 U Epithel Cells (Auto) < 1.0 /HPF (0-13.0) 08/19/20 20:35 Blood Type B POSITIVE 08/19/20 15:01 Antibody Screen Negative 08/19/20 15:01 Microbiology: Microbiology 08/19/20 13:04 Peripheral/Venous Blood Culture - Preliminary NO GROWTH AFTER 48 HOURS 08/19/20 13:04 Peripheral/Venous Blood Culture - Preliminary NO GROWTH AFTER 48 HOURS Luis/IV: Voiding Method Toilet IV Catheter Type [Left Forearm Peripheral IV ] Active Medications - Current Medications Current Medications: Generic Name Dose Route Start Last Admin Trade Name Freq PRN Reason Stop Dose Admin Acetaminophen 650 mg 08/19/20 14:44 Acetaminophen 325 Mg Tab PO Q4H PRN Pain MILD(1-3)/Fever >100.5/MEIER Albuterol 2.5 mg 08/19/20 14:44 Albuterol 2.5 Mg/3 Ml Nebu IH Q4H PRN Shortness Of Breath Benzonatate 100 mg 08/20/20 14:00 08/22/20 05:20 Benzonatate 100 Mg Cap PO 100 mg Q8HR TARA Administration Chlorpromazine HCl 10 mg 08/21/20 15:31 08/21/20 22:31 Chlorpromazine 10 Mg Tab PO 10 mg Q4H PRN Administration Hiccups Dexamethasone 6 mg 08/20/20 12:00 08/22/20 09:41 Dexamethasone 4 Mg Tab PO 08/28/20 10:01 6 mg Q24HR TARA Administration Heparin Sodium (Porcine) 5,000 unit 08/19/20 22:00 08/22/20 09:41 Heparin 5,000 Unit/1 Ml Vial SUB-Q 5,000 unit Q12HR TARA Administration Hydromorphone HCl 0.25 mg 08/19/20 14:44 Hydromorphone 1 Mg/1 Ml Inj IV Q4H PRN Pain, Moderate (4-6) Ceftriaxone Sodium 2 gm in 100 mls @ 200 mls/hr 08/20/20 13:00 08/21/20 12:21 Rocephin/Ns 2 Gm/100 Ml IV 200 mls/hr Q24H TARA Administration Protocol Azithromycin 500 mg/ Sodium 250 mls @ 250 mls/hr 08/20/20 14:00 08/21/20 14:20 Chloride IV 250 mls/hr Q24H TARA Administration Protocol REMDESIVIR 100 mg/ Sodium 250 mls @ 500 mls/hr 08/21/20 21:00 08/21/20 22:01 Chloride IV 08/24/20 21:29 500 mls/hr Q24HR@2100 TARA Administration Insulin Human Isoph/Insulin Regular 20 unit 08/22/20 08:00 08/22/20 09:41 Insulin Nph/Regular 70/30 Inj SUB-Q 20 unit BIDDIAB TARA Administration Insulin Human Lispro 0 unit 08/21/20 16:30 08/22/20 09:42 Insulin Lispro 100 Unit/Ml Vial 3 Ml SUB-Q 8 unit ACHS TARA Administration Protocol Labetalol HCl 10 mg 08/21/20 15:28 08/22/20 05:20 Labetalol 20 Mg/4 Ml Inj IV 10 mg Q4H PRN Administration Hypertension Ondansetron HCl 4 mg 08/19/20 14:44 Ondansetron 4 Mg/2 Ml Inj IV Q8H PRN Nausea And Vomiting Sodium Chloride 10 ml 08/19/20 22:00 08/22/20 09:44 Sodium Chloride 0.9% 10 Ml Flush Syringe IV 10 ml BID TARA Administration Sodium Chloride 10 ml 08/19/20 14:44 Sodium Chloride 0.9% 10 Ml Flush Syringe IV PRN PRN LINE FLUSH Sodium Chloride 50 ml 08/20/20 13:00 08/21/20 22:02 Sodium Chloride 0.9% 50 Ml Ivpb IV 08/24/20 21:31 50 ml Q24HR@2130 TARA Administration
[2020-08-22] MEDS: cefTRIAXone/NS 2 GM/100 ML 2 GM/100 ML BAG IV SCH (13:42)
[2020-08-22] MEDS: AZITHROMYCIN 500 MG in SODIUM CHLORIDE 0.9% 250ML 250 ML IV SCH (13:50)
[2020-08-22] MEDS: INSULIN NPH/REGULAR 70/30 INJ SUB-Q SCH (19:05)
[2020-08-22] MEDS: SODIUM CHLORIDE 0.9% 50 ML IVPB IV SCH (22:01)
[2020-08-22] MEDS: REMDESIVIR 100 MG in SODIUM CHLORIDE 0.9% 250ML 250 ML IV SCH (22:02)
[2020-08-22] MEDS: ACETAMINOPHEN 325 MG TAB PO PRN (22:20)
[2020-08-23] MEDS: BENZONATATE 100 MG CAP PO SCH ×3 (05:53→23:47)
[2020-08-23 07:10] LABS: Alanine Aminotransferase 57 units/L (7-56); Albumin 2.8 g/dL (3.9-5)
[2020-08-23 07:20] LABS: Bilirubin,Direct < 0.2 mg/dL (0-0.2)
--- NOTE | 2020-08-23 08:53 | Progress Note ---
Assessment and Plan Cultures: Blood culture no growth so far. A/P: 50-year-old man past medical history hypertension admitted to the hospital with COVID-19 #Severe COVID-19 pneumonia: Patient presented with 4 days of symptoms, chest x- ray with diffuse bilateral infiltrates, admission O2 sats 88% on room air. Geo ers elevated. Procalcitonin 0.2. #Acute hypoxemic respiratory failure: Likely secondary to COVID-19 infection. Currently on 1 L nasal cannula. #Hypertension #Elevated lactate: Likely due to pneumonia, blood cultures negative, urinalysis negative. #Diabetes mellitus: Uncontrolled. A1c 12. Recs: -6-minute walking test today, if she passes the test okay to discharge after third dose of remdesivir, if she does not pass the test continue remdesivir for 5 days -Follow-up SARS Covid 2 IgG pending -Continue dexamethasone 6 mg IV/PO daily for 10 days -D3 of 10 -Continue remdesivir total 5 days monitor renal and hepatic function while receiving.-D3 of 5 -Stop ceftriaxone and azithromycin, procalcitonin is 0.2 -Proning as able -Anticoagulation per hospital protocol will follow Shanna Larios MD [facility] ([facility]) Office [phone] Subjective Date of service: 08/23/20 Principal diagnosis: Covid pneumonia and respiratory failure with hypoxia Interval history: Patient remains afebrile, now on 1 L nasal cannula, no acute events overnight Objective - Exam Narrative Exam: Deferred to avoid transmission of COVID-19 - Constitutional Vitals: Vital Signs Temp Pulse Resp BP Pulse Ox 99.3 F 89 18 164/109 96 08/23/20 04:04 08/23/20 04:04 08/23/20 04:04 08/23/20 04:04 08/23/20 04:04 Temperature -Last 24 Hours Temperature 99.3 F Temperature 99.0 F Temperature 98.4 F Temperature 97.8 F - Labs CBC & Chem 7: 08/21/20 13:46 08/21/20 13:46 Labs: Abnormal lab results 08/22/20 08/22/20 08/22/20 Range/Units 11:51 16:46 21:19 POC Glucose 412 H 374 H 334 H (70-105) mg/dL ALT (7-56) units/L Albumin (3.9-5) g/dL 08/23/20 08/23/20 Range/Units 05:11 06:15 POC Glucose 169 H (70-105) mg/dL ALT 57 H (7-56) units/L Albumin 2.8 L (3.9-5) g/dL
[2020-08-23] MEDS: HEPARIN 5,000 UNIT/1 ML VIAL SUB-Q SCH ×2 (09:29→23:48)
[2020-08-23] MEDS: INSULIN NPH/REGULAR 70/30 INJ SUB-Q SCH ×2 (09:29→17:59)
[2020-08-23] MEDS: INSULIN LISPRO 100 UNIT/ML VIAL 3 mL SUB-Q SCH ×4 (09:30→23:53)
[2020-08-23] MEDS: DEXAMETHASONE 4 MG TAB PO SCH (09:30)
--- NOTE | 2020-08-23 12:25 | Progress Note ---
Assessment and Plan 50 y/o male with acute respiratory failure and COVID positive with Hypertension. 08/23/2020: Agree with ambulatory test. No documentation of proning so not sure if done or not. Will give lasix again today. 08/22/2020: Wean FiO2 as tolerated for sats >88%. Continue steroids and remdesivir. Abx therapy per ID. Would like to give additional lasix but will ask primary to follow up on labs to see if it is safe to do so. Will continue to follow. Will ask nursing to please document if proning is being done or not. 1. Prone daily and sleep prone at night 2. Continue steroids 3. Continue remdesivir 4. Will give lasix 40mg IV x1 5. No additional IVF's Will continue to follow along with you. Subjective Date of service: 08/23/20 Principal diagnosis: Covid pneumonia and respiratory failure with hypoxia Interval history: Down to 1 liter of oxygen therapy with good sats. Stable. Reviewed ID note. Objective Vital Signs - 12hr 08/23/20 08/23/20 08/23/20 04:04 09:19 10:33 Temperature 99.3 F 99.0 F Pulse Rate 89 92 H Respiratory 18 18 Rate Blood Pressure 164/109 159/96 O2 Sat by Pulse 96 96 95 Oximetry Constitutional: alert Eyes: non-icteric Neck: supple Ascultation: Bilateral: rhonchi (rare) Cardiovascular: regular rate and rhythm Gastrointestinal: normoactive bowel sounds, soft, non-tender Integumentary: normal Extremities: no cyanosis Neurologic: normal mental status Psychiatric: mood appropriate CBC and BMP: 08/21/20 13:46 08/21/20 13:46 ABG, PT/INR, D-dimer: PT/INR, D-dimer PT 14.3 Sec. (12.2-14.9) 08/19/20 13:04 INR 1.13 (0.87-1.13) 08/19/20 13:04 D-Dimer 472.49 ng/mlDDU (0-234) H 08/23/20 10:26 Abnormal lab findings: Abnormal Labs 08/19/20 08/19/20 08/19/20 13:04 13:04 13:04 WBC 11.6 H RBC 5.05 H RDW 13.1 L Lymph % (Auto) [place] % (Auto) Grimes # (Auto) Seg Neutrophils % Seg Neuts % (Manual) 89.0 H Lymphocytes % (Manual) 7.0 L Seg Neutrophils # Seg Neutrophils # Man 10.3 H Lymphocytes # (Manual) 0.8 L D-Dimer Sodium 135 L Potassium 5.1 H Chloride Carbon Dioxide BUN Glucose 324 H POC Glucose Hemoglobin A1c Lactic Acid 2.10 H* Ferritin AST ALT Lactate Dehydrogenase C-Reactive Protein Albumin 08/19/20 08/19/20 08/20/20 13:04 14:39 08:37 WBC 12.4 H RBC RDW 13.1 L Lymph % (Auto) 9.5 L [place] % (Auto) 8.8 H [place] # (Auto) 1.1 H Seg Neutrophils % 81.1 H Seg Neuts % (Manual) Lymphocytes % (Manual) Seg Neutrophils # 10.0 H Seg Neutrophils # Man Lymphocytes # (Manual) D-Dimer Sodium Potassium Chloride Carbon Dioxide BUN Glucose POC Glucose 274 H Hemoglobin A1c Lactic Acid Ferritin AST 48 H ALT Lactate Dehydrogenase C-Reactive Protein Albumin 3.0 L 08/20/20 08/21/20 08/21/20 08:37 13:46 13:46 WBC RBC RDW Lymph % (Auto) [place] % (Auto) [place] # (Auto) Seg Neutrophils % Seg Neuts % (Manual) Lymphocytes % (Manual) Seg Neutrophils # Seg Neutrophils # Man Lymphocytes # (Manual) D-Dimer 433.44 H Sodium 135 L Potassium Chloride Carbon Dioxide 20 L BUN 22 H Glucose 462 H POC Glucose Hemoglobin A1c Lactic Acid Ferritin AST ALT Lactate Dehydrogenase C-Reactive Protein Albumin 3.0 L 08/21/20 08/21/20 08/21/20 13:46 13:46 13:46 WBC RBC RDW Lymph % (Auto) [place] % (Auto) [place] # (Auto) Seg Neutrophils % Seg Neuts % (Manual) Lymphocytes % (Manual) Seg Neutrophils # Seg Neutrophils # Man Lymphocytes # (Manual) D-Dimer Sodium 132 L Potassium Chloride 94.6 L Carbon Dioxide BUN 24 H Glucose 570 H* POC Glucose Hemoglobin A1c Lactic Acid Ferritin 1365.0 H AST ALT Lactate Dehydrogenase 416 H C-Reactive Protein 4.80 H Albumin 08/21/20 08/21/20 08/21/20 13:46 13:46 17:27 WBC RBC RDW 12.7 L Lymph % (Auto) [place] % (Auto) [place] # (Auto) Seg Neutrophils % Seg Neuts % (Manual) Lymphocytes % (Manual) Seg Neutrophils # Seg Neutrophils # Man Lymphocytes # (Manual) D-Dimer Sodium Potassium Chloride Carbon Dioxide BUN Glucose POC Glucose 584 H Hemoglobin A1c 12.5 H Lactic Acid Ferritin AST ALT Lactate Dehydrogenase C-Reactive Protein Albumin 08/21/20 08/22/20 08/22/20 21:49 05:28 08:05 WBC RBC RDW Lymph % (Auto) [place] % (Auto) [place] # (Auto) Seg Neutrophils % Seg Neuts % (Manual) Lymphocytes % (Manual) Seg Neutrophils # Seg Neutrophils # Man Lymphocytes # (Manual) D-Dimer Sodium Potassium Chloride Carbon Dioxide BUN Glucose POC Glucose 514 H 389 H 315 H Hemoglobin A1c Lactic Acid Ferritin AST ALT Lactate Dehydrogenase C-Reactive Protein Albumin 08/22/20 08/22/20 08/22/20 11:51 16:46 21:19 WBC RBC RDW Lymph % (Auto) [place] % (Auto) [place] # (Auto) Seg Neutrophils % Seg Neuts % (Manual) Lymphocytes % (Manual) Seg Neutrophils # Seg Neutrophils # Man Lymphocytes # (Manual) D-Dimer Sodium Potassium Chloride Carbon Dioxide BUN Glucose POC Glucose 412 H 374 H 334 H Hemoglobin A1c Lactic Acid Ferritin AST ALT Lactate Dehydrogenase C-Reactive Protein Albumin 08/23/20 08/23/20 08/23/20 05:11 06:15 10:26 WBC RBC RDW Lymph % (Auto) [place] % (Auto) [place] # (Auto) Seg Neutrophils % Seg Neuts % (Manual) Lymphocytes % (Manual) Seg Neutrophils # Seg Neutrophils # Man Lymphocytes # (Manual) D-Dimer 472.49 H Sodium Potassium Chloride Carbon Dioxide BUN Glucose POC Glucose 169 H Hemoglobin A1c Lactic Acid Ferritin AST ALT 57 H Lactate Dehydrogenase C-Reactive Protein Albumin 2.8 L 08/23/20 08/23/20 08/23/20 10:26 10:26 10:33 WBC RBC RDW Lymph % (Auto) [place] % (Auto) [place] # (Auto) Seg Neutrophils % Seg Neuts % (Manual) Lymphocytes % (Manual) Seg Neutrophils # Seg Neutrophils # Man Lymphocytes # (Manual) D-Dimer Sodium Potassium Chloride Carbon Dioxide BUN Glucose POC Glucose 265 H Hemoglobin A1c Lactic Acid Ferritin AST ALT Lactate Dehydrogenase 365 H C-Reactive Protein 2.10 H Albumin
[2020-08-23] MEDS ORDERED: FUROSEMIDE 40 MG/4 ML INJ IV NR (13:00)
[2020-08-23] MEDS: hydrALAZINE 25 MG TAB PO SCH ×2 (14:09→23:48)
--- NOTE | 2020-08-23 14:13 | Progress Note ---
Assessment and Plan Assessment and plan: --Severe hyperglycemia;/diabetes mellitus probably secondary to steroid use, and underlying diabetes Accu-Chek sliding scale coverage ADA diet Long-acting insulin, Novolin 70/30 increase to 30 units twice a day check A1c 12.5, Diabetic education, diabetic diet education Possible home health nurse at time of discharge For diabetes management --Peripheral neuropathy; diabetic start low-dose of Neurontin --Hiccups; supportive care. Becki Does not have renal failure or uremia Closely monitor -- Sepsis Current Visit: Yes Status: Acute Plan to address problem: Sepsis secondary to COVID-19 pneumonia Treat the underlying cause, supportive care --Acute hypoxemic respiratory failure Current Visit: Yes Status: Acute Plan to address problem: Oxygen titrate O2 sats to more than 90% BiPAP as needed -- Coronavirus infection; Current Visit: Yes Status: Acute Plan to address problem: History of positive Covid prior to admission No Covid test done We will get a repeat coronavirus PCR ID following, inflammatory markers IV steroids, remdesivir Prone position both day and night --Bilateral pneumonia Current Visit: Yes Status: Acute Plan to address problem: Empiric antibiotics, follow cultures -- Hypertension moderate control Current Visit: Yes Status: Acute Plan to address problem: Monitor blood pressure every shift, continue medical management --DVT prophylaxis Current Visit: Yes Status: Acute Plan to address problem: SCD Closely monitor patient and adjust management as needed Plan of care reviewed with the patient and the nurse History Interval history: Seen and examined the patient at the bedside Isolation and PPE protocols observed Patient's has uncontrolled blood sugars Partly may be due to steroids Patient's hiccups significantly improved Vital signs noted Hospitalist Physical - Constitutional Vitals: Temp Pulse Resp BP Pulse Ox 99.0 F 90 18 162/98 95 08/23/20 10:33 08/23/20 14:09 08/23/20 10:33 08/23/20 14:09 08/23/20 10:33 General appearance: Present: mild distress, well-nourished - EENT Eyes: Present: PERRL, EOM intact - Neck Neck: Present: supple, normal ROM - Respiratory Respiratory effort: normal Respiratory: bilateral: diminished, negative: rales, rhonchi, wheezing - Cardiovascular Rhythm: regular Heart Sounds: Present: S1 & S2 - Extremities Extremities: no ischemia, No edema - Abdominal General gastrointestinal: soft, non-tender, non-distended, normal bowel sounds - Integumentary Integumentary: Present: clear, warm - Psychiatric Psychiatric: appropriate mood/affect, cooperative - Neurologic Neurologic: moves all extremities Results - Labs CBC & Chem 7: 08/21/20 13:46 08/21/20 13:46 Labs: Laboratory Last Values WBC 10.6 K/mm3 (4.5-11.0) 08/21/20 13:46 RBC 4.82 M/mm3 (3.65-5.03) 08/21/20 13:46 Hgb 14.0 gm/dl (11.8-15.2) 08/21/20 13:46 Hct 40.9 % (35.5-45.6) 08/21/20 13:46 MCV 85 fl (84-94) 08/21/20 13:46 MCH 29 pg (28-32) 08/21/20 13:46 MCHC 34 % (32-34) 08/21/20 13:46 RDW 12.7 % (13.2-15.2) L 08/21/20 13:46 Plt Count 360 K/mm3 (140-440) 08/21/20 13:46 Lymph % (Auto) 9.5 % (13.4-35.0) L 08/20/20 08:37 Riley % (Auto) 8.8 % (0.0-7.3) H 08/20/20 08:37 Eos % (Auto) 0.0 % (0.0-4.3) 08/20/20 08:37 Baso % (Auto) 0.6 % (0.0-1.8) 08/20/20 08:37 Lymph # (Auto) 1.2 K/mm3 (1.2-5.4) 08/20/20 08:37 Riley # (Auto) 1.1 K/mm3 (0.0-0.8) H 08/20/20 08:37 Eos # (Auto) 0.0 K/mm3 (0.0-0.4) 08/20/20 08:37 Baso # (Auto) 0.1 K/mm3 (0.0-0.1) 08/20/20 08:37 Add Manual Diff Complete 08/19/20 13:04 Total Counted 100 08/19/20 13:04 Seg Neutrophils % 81.1 % (40.0-70.0) H 08/20/20 08:37 Seg Neuts % (Manual) 89.0 % (40.0-70.0) H 08/19/20 13:04 Band Neutrophils % 1.0 % 08/19/20 13:04 Lymphocytes % (Manual) 7.0 % (13.4-35.0) L 08/19/20 13:04 Monocytes % (Manual) 3.0 % (0.0-7.3) 08/19/20 13:04 Nucleated RBC % Not Reportable 08/19/20 13:04 Seg Neutrophils # 10.0 K/mm3 (1.8-7.7) H 08/20/20 08:37 Seg Neutrophils # Man 10.3 K/mm3 (1.8-7.7) H 08/19/20 13:04 Band Neutrophils # 0.1 K/mm3 08/19/20 13:04 Lymphocytes # (Manual) 0.8 K/mm3 (1.2-5.4) L 08/19/20 13:04 Abs React Lymphs (Man) 0.0 K/mm3 08/19/20 13:04 Monocytes # (Manual) 0.3 K/mm3 (0.0-0.8) 08/19/20 13:04 Eosinophils # (Manual) 0.0 K/mm3 (0.0-0.4) 08/19/20 13:04 Basophils # (Manual) 0.0 K/mm3 (0.0-0.1) 08/19/20 13:04 Metamyelocytes # 0.0 K/mm3 08/19/20 13:04 Myelocytes # 0.0 K/mm3 08/19/20 13:04 Promyelocytes # 0.0 K/mm3 08/19/20 13:04 Blast Cells # 0.0 K/mm3 08/19/20 13:04 WBC Morphology Not Reportable 08/19/20 13:04 Hypersegmented Neuts Not Reportable 08/19/20 13:04 Hyposegmented Neuts Not Reportable 08/19/20 13:04 Hypogranular Neuts Not Reportable 08/19/20 13:04 Smudge Cells Not Reportable 08/19/20 13:04 Toxic Granulation Not Reportable 08/19/20 13:04 Toxic Vacuolation Not Reportable 08/19/20 13:04 Dohle Bodies Not Reportable 08/19/20 13:04 Pelger-Huet Anomaly Not Reportable 08/19/20 13:04 Tammy Rods Not Reportable 08/19/20 13:04 Platelet Estimate Consistent w auto 08/19/20 13:04 Clumped Platelets Not Reportable 08/19/20 13:04 Plt Clumps, EDTA Not Reportable 08/19/20 13:04 Large Platelets Not Reportable 08/19/20 13:04 Giant Platelets Not Reportable 08/19/20 13:04 Platelet Satelliting Not Reportable 08/19/20 13:04 Plt Morphology Comment Not Reportable 08/19/20 13:04 RBC Morphology Normal 08/19/20 13:04 Dimorphic RBCs Not Reportable 08/19/20 13:04 Polychromasia Not Reportable 08/19/20 13:04 Hypochromasia Not Reportable 08/19/20 13:04 Poikilocytosis Not Reportable 08/19/20 13:04 Anisocytosis Not Reportable 08/19/20 13:04 Microcytosis Not Reportable 08/19/20 13:04 Macrocytosis Not Reportable 08/19/20 13:04 Spherocytes Not Reportable 08/19/20 13:04 Pappenheimer Bodies Not Reportable 08/19/20 13:04 Sickle Cells Not Reportable 08/19/20 13:04 Target Cells Not Reportable 08/19/20 13:04 Tear Drop Cells Not Reportable 08/19/20 13:04 Ovalocytes Not Reportable 08/19/20 13:04 Helmet Cells Not Reportable 08/19/20 13:04 Pittman-Robbins Bodies Not Reportable 08/19/20 13:04 Custer Rings Not Reportable 08/19/20 13:04 [place] Cells Not Reportable 08/19/20 13:04 Bite Cells Not Reportable 08/19/20 13:04 Crenated Cell Not Reportable 08/19/20 13:04 Elliptocytes Not Reportable 08/19/20 13:04 Acanthocytes (Spur) Not Reportable 08/19/20 13:04 Rouleaux Not Reportable 08/19/20 13:04 Hemoglobin C Crystals Not Reportable 08/19/20 13:04 Schistocytes Not Reportable 08/19/20 13:04 Malaria parasites Not Reportable 08/19/20 13:04 Sunny Bodies Not Reportable 08/19/20 13:04 Hem Pathologist Commnt No 08/19/20 13:04 PT 14.3 Sec. (12.2-14.9) 08/19/20 13:04 INR 1.13 (0.87-1.13) 08/19/20 13:04 APTT 29.2 Sec. (24.2-36.6) 08/19/20 13:04 D-Dimer 472.49 ng/mlDDU (0-234) H 08/23/20 10:26 Sodium 132 mmol/L (137-145) L 08/21/20 13:46 Potassium 4.2 mmol/L (3.6-5.0) 08/21/20 13:46 Chloride 94.6 mmol/L (98-107) L 08/21/20 13:46 Carbon Dioxide 25 mmol/L (22-30) 08/21/20 13:46 Anion Gap 17 mmol/L 08/21/20 13:46 BUN 24 mg/dL (9-20) H 08/21/20 13:46 Creatinine 1.0 mg/dL (0.8-1.3) 08/21/20 13:46 Estimated GFR > 60 ml/min 08/21/20 13:46 BUN/Creatinine Ratio 24 % 08/21/20 13:46 Glucose 570 mg/dL (75-100) H* 08/21/20 13:46 POC Glucose 265 mg/dL (70-105) H 08/23/20 10:33 Hemoglobin A1c 12.5 % (4-6) H 08/21/20 13:46 Lactic Acid 1.80 mmol/L (0.7-2.0) 08/19/20 20:49 Calcium 8.9 mg/dL (8.4-10.2) 08/21/20 13:46 Ferritin 955.2 ng/mL (30.0-300.0) H 08/23/20 10:26 Total Bilirubin 0.30 mg/dL (0.1-1.2) 08/23/20 05:11 Direct Bilirubin < 0.2 mg/dL (0-0.2) 08/23/20 05:11 Indirect Bilirubin 0.1 mg/dL 08/23/20 05:11 AST 40 units/L (5-40) 08/23/20 05:11 ALT 57 units/L (7-56) H 08/23/20 05:11 Alkaline Phosphatase 67 units/L (35-129) 08/23/20 05:11 Lactate Dehydrogenase 365 units/L (91-180) H 08/23/20 10:26 C-Reactive Protein 2.10 mg/dL (0.00-1.30) H 08/23/20 10:26 Total Protein 6.5 g/dL (6.3-8.2) 08/23/20 05:11 Albumin 2.8 g/dL (3.9-5) L 08/23/20 05:11 Albumin/Globulin Ratio 0.8 % 08/23/20 05:11 Procalcitonin 0.27 ng/mL (<0.15) 08/21/20 13:46 Urine Color Yellow (Yellow) 08/19/20 20:35 Urine Turbidity Clear (Clear) 08/19/20 20:35 Urine pH 6.0 (5.0-7.0) 08/19/20 20:35 Ur Specific [place] 1.026 (1.003-1.030) 08/19/20 20:35 Urine Protein >500 mg/dL (Negative) 08/19/20 20:35 Urine Glucose (UA) >=500 mg/dL (Negative) 08/19/20 20:35 Urine Ketones 20 mg/dL (Negative) 08/19/20 20:35 Urine Blood Neg (Negative) 08/19/20 20:35 Urine Nitrite Neg (Negative) 08/19/20 20:35 Urine Bilirubin Neg (Negative) 08/19/20 20:35 Urine Urobilinogen < 2.0 mg/dL (<2.0) 08/19/20 20:35 Ur Leukocyte Esterase Neg (Negative) 08/19/20 20:35 Urine WBC (Auto) 2.0 /HPF (0.0-6.0) 08/19/20 20:35 Urine RBC (Auto) 1.0 /HPF (0.0-6.0) 08/19/20 20:35 U Epithel Cells (Auto) < 1.0 /HPF (0-13.0) 08/19/20 20:35 Blood Type B POSITIVE 08/19/20 15:01 Antibody Screen Negative 08/19/20 15:01 Microbiology: Microbiology 08/19/20 13:04 Peripheral/Venous Blood Culture - Preliminary NO GROWTH AFTER 72 HOURS 08/19/20 13:04 Peripheral/Venous Blood Culture - Preliminary NO GROWTH AFTER 72 HOURS Luis/IV: Voiding Method Toilet IV Catheter Type [Left Upper INT / Saline Lock arm] IV Catheter Type [Left Forearm Peripheral IV ] Active Medications - Current Medications Current Medications: Generic Name Dose Route Start Last Admin Trade Name Freq PRN Reason Stop Dose Admin Acetaminophen 650 mg 08/19/20 14:44 08/22/20 22:20 Acetaminophen 325 Mg Tab PO 650 mg Q4H PRN Administration Pain MILD(1-3)/Fever >100.5/MEIER Albuterol 2.5 mg 08/19/20 14:44 Albuterol 2.5 Mg/3 Ml Nebu IH Q4H PRN Shortness Of Breath Benzonatate 100 mg 08/20/20 14:00 08/23/20 14:08 Benzonatate 100 Mg Cap PO 100 mg Q8HR TARA Administration Chlorpromazine HCl 10 mg 08/21/20 15:31 08/22/20 22:01 Chlorpromazine 10 Mg Tab PO 10 mg Q4H PRN Administration Hiccups Dexamethasone 6 mg 08/20/20 12:00 08/23/20 09:30 Dexamethasone 4 Mg Tab PO 08/28/20 10:01 6 mg Q24HR TARA Administration Furosemide 40 mg 08/23/20 13:00 08/23/20 14:08 Furosemide 40 Mg/4 Ml Inj IV 08/23/20 18:00 40 mg ONCE@1300 NR Administration Heparin Sodium (Porcine) 5,000 unit 08/19/20 22:00 08/23/20 09:29 Heparin 5,000 Unit/1 Ml Vial SUB-Q 5,000 unit Q12HR TARA Administration Hydralazine HCl 25 mg 08/23/20 14:00 08/23/20 14:09 Hydralazine 25 Mg Tab PO 25 mg Q8HR TARA Administration Hydromorphone HCl 0.25 mg 08/19/20 14:44 Hydromorphone 1 Mg/1 Ml Inj IV Q4H PRN Pain, Moderate (4-6) REMDESIVIR 100 mg/ Sodium 250 mls @ 500 mls/hr 08/21/20 21:00 08/22/20 22:02 Chloride IV 08/24/20 21:29 500 mls/hr Q24HR@2100 TARA Administration Insulin Human Isoph/Insulin Regular 30 unit 08/22/20 17:00 08/23/20 09:29 Insulin Nph/Regular 70/30 Inj SUB-Q 30 unit BIDDIAB TARA Administration Insulin Human Lispro 0 unit 08/21/20 16:30 08/23/20 09:30 Insulin Lispro 100 Unit/Ml Vial 3 Ml SUB-Q 3 unit ACHS TARA Administration Protocol Labetalol HCl 10 mg 08/21/20 15:28 08/22/20 05:20 Labetalol 20 Mg/4 Ml Inj IV 10 mg Q4H PRN Administration Hypertension Ondansetron HCl 4 mg 08/19/20 14:44 Ondansetron 4 Mg/2 Ml Inj IV Q8H PRN Nausea And Vomiting Sodium Chloride 10 ml 08/19/20 22:00 08/23/20 09:31 Sodium Chloride 0.9% 10 Ml Flush Syringe IV 10 ml BID TARA Administration Sodium Chloride 10 ml 08/19/20 14:44 Sodium Chloride 0.9% 10 Ml Flush Syringe IV PRN PRN LINE FLUSH Sodium Chloride 50 ml 08/20/20 13:00 08/22/20 22:01 Sodium Chloride 0.9% 50 Ml Ivpb IV 08/24/20 21:31 50 ml Q24HR@2130 TARA Administration
[2020-08-23] MEDS: SODIUM CHLORIDE 0.9% 50 ML IVPB IV SCH (23:46)
[2020-08-23] MEDS: ACETAMINOPHEN 325 MG TAB PO PRN (23:47)
[2020-08-23] MEDS: REMDESIVIR 100 MG in SODIUM CHLORIDE 0.9% 250ML 250 ML IV SCH (23:47)
[2020-08-23] MEDS: GABAPENTIN 100 MG CAP PO SCH (23:48)
[2020-08-24] MEDS: GABAPENTIN 100 MG CAP PO SCH ×3 (05:34→22:27)
[2020-08-24] MEDS: BENZONATATE 100 MG CAP PO SCH ×3 (05:34→22:37)
[2020-08-24] MEDS: hydrALAZINE 25 MG TAB PO SCH ×3 (05:34→22:28)
[2020-08-24] MEDS: INSULIN LISPRO 100 UNIT/ML VIAL 3 mL SUB-Q SCH ×4 (09:10→22:41)
[2020-08-24] MEDS: INSULIN NPH/REGULAR 70/30 INJ SUB-Q SCH ×2 (09:11→17:57)
[2020-08-24] MEDS: DEXAMETHASONE 4 MG TAB PO SCH (09:12)
[2020-08-24] MEDS: HEPARIN 5,000 UNIT/1 ML VIAL SUB-Q SCH ×2 (09:13→22:33)
--- NOTE | 2020-08-24 09:17 | Progress Note ---
Assessment and Plan Cultures: Blood culture no growth so far. A/P: 50-year-old man past medical history hypertension admitted to the hospital with COVID-19 #Severe COVID-19 pneumonia: Patient presented with 4 days of symptoms, chest x- ray with diffuse bilateral infiltrates, admission O2 sats 88% on room air. Geo ers elevated. Procalcitonin 0.2. #Acute hypoxemic respiratory failure: Likely secondary to COVID-19 infection. Currently on 2 L nasal cannula. Ferritin improving, Ddimer slightly up. #Hypertension #Elevated lactate: Likely due to pneumonia, blood cultures negative, urinalysis negative. #Diabetes mellitus: Uncontrolled. A1c 12. Recs: -6-minute walking test if she passes the test okay to discharge after today's remdesivir, if she does not pass the test continue remdesivir for 5 days -Follow-up SARS Covid 2 IgG pending -Continue dexamethasone 6 mg IV/PO daily for 10 days -D4 of 10 -Continue remdesivir total 5 days monitor renal and hepatic function while receiving.-D4 of 5 -Proning as able -Anticoagulation per hospital protocol will follow Shanna Larios MD [facility] ([facility]) Office [phone] Subjective Date of service: 08/24/20 Principal diagnosis: Covid pneumonia and respiratory failure with hypoxia Interval history: Patient remains afebrile, now on 2 L nasal cannula Objective - Exam Narrative Exam: Deferred to avoid transmission of COVID-19 - Constitutional Vitals: Vital Signs Temp Pulse Resp BP Pulse Ox 98.0 F 87 16 145/101 99 08/24/20 05:22 08/24/20 05:22 08/24/20 05:22 08/24/20 05:22 08/24/20 08:39 Temperature -Last 24 Hours Temperature 98.0 F Temperature 97.8 F Temperature 98.8 F Temperature 99.0 F - Labs CBC & Chem 7: 08/21/20 13:46 08/21/20 13:46 Labs: Abnormal lab results 08/23/20 08/23/20 08/23/20 Range/Units 10:26 10:26 10:26 D-Dimer 472.49 H (0-234) ng/mlDDU POC Glucose (70-105) mg/dL Ferritin 955.2 H (30.0-300.0) ng/mL Lactate Dehydrogenase (91-180) units/L C-Reactive Protein (0.00-1.30) mg/dL SARS-CoV-2 IgG Ab Reactive A (NonReactive) 08/23/20 08/23/20 08/23/20 Range/Units 10:26 10:26 10:33 D-Dimer (0-234) ng/mlDDU POC Glucose 265 H (70-105) mg/dL Ferritin (30.0-300.0) ng/mL Lactate Dehydrogenase 365 H (91-180) units/L C-Reactive Protein 2.10 H (0.00-1.30) mg/dL SARS-CoV-2 IgG Ab (NonReactive) 08/23/20 08/23/20 08/24/20 Range/Units 16:55 22:56 07:42 D-Dimer (0-234) ng/mlDDU POC Glucose 422 H 329 H 150 H (70-105) mg/dL Ferritin (30.0-300.0) ng/mL Lactate Dehydrogenase (91-180) units/L C-Reactive Protein (0.00-1.30) mg/dL SARS-CoV-2 IgG Ab (NonReactive)
--- NOTE | 2020-08-24 18:53 | Progress Note ---
Assessment and Plan Assessment and plan: --Severe hyperglycemia;/diabetes mellitus probably secondary to steroid use, and underlying diabetes Accu-Chek sliding scale coverage ADA diet Long-acting insulin, Novolin 70/30 increase to 30 units twice a day check A1c 12.5, Diabetic education, diabetic diet education Possible home health nurse at time of discharge For diabetes management --Peripheral neuropathy; diabetic start low-dose of Neurontin --Hiccups; supportive care. Becki Does not have renal failure or uremia Closely monitor -- Sepsis Current Visit: Yes Status: Acute Plan to address problem: Sepsis secondary to COVID-19 pneumonia Treat the underlying cause, supportive care --Acute hypoxemic respiratory failure Current Visit: Yes Status: Acute Plan to address problem: Oxygen titrate O2 sats to more than 90% BiPAP as needed -- Coronavirus infection; Current Visit: Yes Status: Acute Plan to address problem: History of positive Covid prior to admission No Covid test done We will get a repeat coronavirus PCR ID following, inflammatory markers IV steroids, remdesivir Prone position both day and night --Bilateral pneumonia Current Visit: Yes Status: Acute Plan to address problem: Empiric antibiotics, follow cultures -- Hypertension moderate control Current Visit: Yes Status: Acute Plan to address problem: Monitor blood pressure every shift, continue medical management --DVT prophylaxis Current Visit: Yes Status: Acute Plan to address problem: SCD Closely monitor patient and adjust management as needed Plan of care reviewed with the patient and the nurse History Interval history: I have seen and examined the patient at the bedside Patient's chart and medications reviewed Patient feels slightly better No new complaints Hospitalist Physical - Constitutional Vitals: Temp Pulse Resp BP Pulse Ox 98.4 F 106 H 17 138/88 95 08/24/20 18:00 08/24/20 18:00 08/24/20 18:00 08/24/20 18:00 08/24/20 18:00 General appearance: Present: no acute distress, well-nourished - EENT Eyes: Present: PERRL, EOM intact - Neck Neck: Present: supple, normal ROM - Respiratory Respiratory effort: normal Respiratory: bilateral: diminished, rhonchi, negative: rales, wheezing - Cardiovascular Rhythm: regular Heart Sounds: Present: S1 & S2 - Extremities Extremities: no ischemia, No edema - Abdominal General gastrointestinal: soft, non-tender, non-distended, normal bowel sounds - Integumentary Integumentary: Present: clear, warm - Psychiatric Psychiatric: appropriate mood/affect, cooperative - Neurologic Neurologic: moves all extremities Results - Labs CBC & Chem 7: 08/21/20 13:46 08/21/20 13:46 Labs: Laboratory Last Values WBC 10.6 K/mm3 (4.5-11.0) 08/21/20 13:46 RBC 4.82 M/mm3 (3.65-5.03) 08/21/20 13:46 Hgb 14.0 gm/dl (11.8-15.2) 08/21/20 13:46 Hct 40.9 % (35.5-45.6) 08/21/20 13:46 MCV 85 fl (84-94) 08/21/20 13:46 MCH 29 pg (28-32) 08/21/20 13:46 MCHC 34 % (32-34) 08/21/20 13:46 RDW 12.7 % (13.2-15.2) L 08/21/20 13:46 Plt Count 360 K/mm3 (140-440) 08/21/20 13:46 Lymph % (Auto) 9.5 % (13.4-35.0) L 08/20/20 08:37 [place] % (Auto) 8.8 % (0.0-7.3) H 08/20/20 08:37 Eos % (Auto) 0.0 % (0.0-4.3) 08/20/20 08:37 Baso % (Auto) 0.6 % (0.0-1.8) 08/20/20 08:37 Lymph # (Auto) 1.2 K/mm3 (1.2-5.4) 08/20/20 08:37 [place] # (Auto) 1.1 K/mm3 (0.0-0.8) H 08/20/20 08:37 Eos # (Auto) 0.0 K/mm3 (0.0-0.4) 08/20/20 08:37 Baso # (Auto) 0.1 K/mm3 (0.0-0.1) 08/20/20 08:37 Add Manual Diff Complete 08/19/20 13:04 Total Counted 100 08/19/20 13:04 Seg Neutrophils % 81.1 % (40.0-70.0) H 08/20/20 08:37 Seg Neuts % (Manual) 89.0 % (40.0-70.0) H 08/19/20 13:04 Band Neutrophils % 1.0 % 08/19/20 13:04 Lymphocytes % (Manual) 7.0 % (13.4-35.0) L 08/19/20 13:04 Monocytes % (Manual) 3.0 % (0.0-7.3) 08/19/20 13:04 Nucleated RBC % Not Reportable 08/19/20 13:04 Seg Neutrophils # 10.0 K/mm3 (1.8-7.7) H 08/20/20 08:37 Seg Neutrophils # Man 10.3 K/mm3 (1.8-7.7) H 08/19/20 13:04 Band Neutrophils # 0.1 K/mm3 08/19/20 13:04 Lymphocytes # (Manual) 0.8 K/mm3 (1.2-5.4) L 08/19/20 13:04 Abs React Lymphs (Man) 0.0 K/mm3 08/19/20 13:04 Monocytes # (Manual) 0.3 K/mm3 (0.0-0.8) 08/19/20 13:04 Eosinophils # (Manual) 0.0 K/mm3 (0.0-0.4) 08/19/20 13:04 Basophils # (Manual) 0.0 K/mm3 (0.0-0.1) 08/19/20 13:04 Metamyelocytes # 0.0 K/mm3 08/19/20 13:04 Myelocytes # 0.0 K/mm3 08/19/20 13:04 Promyelocytes # 0.0 K/mm3 08/19/20 13:04 Blast Cells # 0.0 K/mm3 08/19/20 13:04 WBC Morphology Not Reportable 08/19/20 13:04 Hypersegmented Neuts Not Reportable 08/19/20 13:04 Hyposegmented Neuts Not Reportable 08/19/20 13:04 Hypogranular Neuts Not Reportable 08/19/20 13:04 Smudge Cells Not Reportable 08/19/20 13:04 Toxic Granulation Not Reportable 08/19/20 13:04 Toxic Vacuolation Not Reportable 08/19/20 13:04 Dohle Bodies Not Reportable 08/19/20 13:04 Pelger-Huet Anomaly Not Reportable 08/19/20 13:04 Tammy Rods Not Reportable 08/19/20 13:04 Platelet Estimate Consistent w auto 08/19/20 13:04 Clumped Platelets Not Reportable 08/19/20 13:04 Plt Clumps, EDTA Not Reportable 08/19/20 13:04 Large Platelets Not Reportable 08/19/20 13:04 Giant Platelets Not Reportable 08/19/20 13:04 Platelet Satelliting Not Reportable 08/19/20 13:04 Plt Morphology Comment Not Reportable 08/19/20 13:04 RBC Morphology Normal 08/19/20 13:04 Dimorphic RBCs Not Reportable 08/19/20 13:04 Polychromasia Not Reportable 08/19/20 13:04 Hypochromasia Not Reportable 08/19/20 13:04 Poikilocytosis Not Reportable 08/19/20 13:04 Anisocytosis Not Reportable 08/19/20 13:04 Microcytosis Not Reportable 08/19/20 13:04 Macrocytosis Not Reportable 08/19/20 13:04 Spherocytes Not Reportable 08/19/20 13:04 Pappenheimer Bodies Not Reportable 08/19/20 13:04 Sickle Cells Not Reportable 08/19/20 13:04 Target Cells Not Reportable 08/19/20 13:04 Tear Drop Cells Not Reportable 08/19/20 13:04 Ovalocytes Not Reportable 08/19/20 13:04 Helmet Cells Not Reportable 08/19/20 13:04 [place] Bodies Not Reportable 08/19/20 13:04 [place] Rings Not Reportable 08/19/20 13:04 Karan Cells Not Reportable 08/19/20 13:04 Bite Cells Not Reportable 08/19/20 13:04 Crenated Cell Not Reportable 08/19/20 13:04 Elliptocytes Not Reportable 08/19/20 13:04 Acanthocytes (Spur) Not Reportable 08/19/20 13:04 Rouleaux Not Reportable 08/19/20 13:04 Hemoglobin C Crystals Not Reportable 08/19/20 13:04 Schistocytes Not Reportable 08/19/20 13:04 Malaria parasites Not Reportable 08/19/20 13:04 Sunny Bodies Not Reportable 08/19/20 13:04 Hem Pathologist Commnt No 08/19/20 13:04 PT 14.3 Sec. (12.2-14.9) 08/19/20 13:04 INR 1.13 (0.87-1.13) 08/19/20 13:04 APTT 29.2 Sec. (24.2-36.6) 08/19/20 13:04 D-Dimer 472.49 ng/mlDDU (0-234) H 08/23/20 10:26 Sodium 132 mmol/L (137-145) L 08/21/20 13:46 Potassium 4.2 mmol/L (3.6-5.0) 08/21/20 13:46 Chloride 94.6 mmol/L (98-107) L 08/21/20 13:46 Carbon Dioxide 25 mmol/L (22-30) 08/21/20 13:46 Anion Gap 17 mmol/L 08/21/20 13:46 BUN 24 mg/dL (9-20) H 08/21/20 13:46 Creatinine 1.0 mg/dL (0.8-1.3) 08/21/20 13:46 Estimated GFR > 60 ml/min 08/21/20 13:46 BUN/Creatinine Ratio 24 % 08/21/20 13:46 Glucose 570 mg/dL (75-100) H* 08/21/20 13:46 POC Glucose 295 mg/dL (70-105) H 08/24/20 15:55 Hemoglobin A1c 12.5 % (4-6) H 08/21/20 13:46 Lactic Acid 1.80 mmol/L (0.7-2.0) 08/19/20 20:49 Calcium 8.9 mg/dL (8.4-10.2) 08/21/20 13:46 Ferritin 955.2 ng/mL (30.0-300.0) H 08/23/20 10:26 Total Bilirubin 0.30 mg/dL (0.1-1.2) 08/23/20 05:11 Direct Bilirubin < 0.2 mg/dL (0-0.2) 08/23/20 05:11 Indirect Bilirubin 0.1 mg/dL 08/23/20 05:11 AST 40 units/L (5-40) 08/23/20 05:11 ALT 57 units/L (7-56) H 08/23/20 05:11 Alkaline Phosphatase 67 units/L (35-129) 08/23/20 05:11 Lactate Dehydrogenase 365 units/L (91-180) H 08/23/20 10:26 C-Reactive Protein 2.10 mg/dL (0.00-1.30) H 08/23/20 10:26 Total Protein 6.5 g/dL (6.3-8.2) 08/23/20 05:11 Albumin 2.8 g/dL (3.9-5) L 08/23/20 05:11 Albumin/Globulin Ratio 0.8 % 08/23/20 05:11 Procalcitonin 0.27 ng/mL (<0.15) 08/21/20 13:46 Urine Color Yellow (Yellow) 08/19/20 20:35 Urine Turbidity Clear (Clear) 08/19/20 20:35 Urine pH 6.0 (5.0-7.0) 08/19/20 20:35 Ur Specific [place] 1.026 (1.003-1.030) 08/19/20 20:35 Urine Protein >500 mg/dL (Negative) 08/19/20 20:35 Urine Glucose (UA) >=500 mg/dL (Negative) 08/19/20 20:35 Urine Ketones 20 mg/dL (Negative) 08/19/20 20:35 Urine Blood Neg (Negative) 08/19/20 20:35 Urine Nitrite Neg (Negative) 08/19/20 20:35 Urine Bilirubin Neg (Negative) 08/19/20 20:35 Urine Urobilinogen < 2.0 mg/dL (<2.0) 08/19/20 20:35 Ur Leukocyte Esterase Neg (Negative) 08/19/20 20:35 Urine WBC (Auto) 2.0 /HPF (0.0-6.0) 08/19/20 20:35 Urine RBC (Auto) 1.0 /HPF (0.0-6.0) 08/19/20 20:35 U Epithel Cells (Auto) < 1.0 /HPF (0-13.0) 08/19/20 20:35 SARS-CoV-2 IgG Ab Reactive (NonReactive) A 08/23/20 10:26 Blood Type B POSITIVE 08/19/20 15:01 Antibody Screen Negative 08/19/20 15:01 Microbiology: Microbiology 08/19/20 13:04 Peripheral/Venous Blood Culture - Final NO GROWTH AFTER 5 DAYS 08/19/20 13:04 Peripheral/Venous Blood Culture - Final NO GROWTH AFTER 5 DAYS Luis/IV: Voiding Method Toilet IV Catheter Type [Left Upper INT / Saline Lock arm] IV Catheter Type [Left Forearm Peripheral IV ] Active Medications - Current Medications Current Medications: Generic Name Dose Route Start Last Admin Trade Name Freq PRN Reason Stop Dose Admin Acetaminophen 650 mg 08/19/20 14:44 08/23/20 23:47 Acetaminophen 325 Mg Tab PO 650 mg Q4H PRN Administration Pain MILD(1-3)/Fever >100.5/MEIER Albuterol 2.5 mg 08/19/20 14:44 Albuterol 2.5 Mg/3 Ml Nebu IH Q4H PRN Shortness Of Breath Benzonatate 100 mg 08/20/20 14:00 08/24/20 13:00 Benzonatate 100 Mg Cap PO 100 mg Q8HR TARA Administration Chlorpromazine HCl 10 mg 08/21/20 15:31 08/22/20 22:01 Chlorpromazine 10 Mg Tab PO 10 mg Q4H PRN Administration Hiccups Dexamethasone 6 mg 08/20/20 12:00 08/24/20 09:12 Dexamethasone 4 Mg Tab PO 08/28/20 10:01 6 mg Q24HR TARA Administration Gabapentin 100 mg 08/23/20 22:00 08/24/20 13:00 Gabapentin 100 Mg Cap PO 100 mg Q8HR TARA Administration Heparin Sodium (Porcine) 5,000 unit 08/19/20 22:00 08/24/20 09:13 Heparin 5,000 Unit/1 Ml Vial SUB-Q 5,000 unit Q12HR TARA Administration Hydralazine HCl 25 mg 08/23/20 14:00 08/24/20 13:00 Hydralazine 25 Mg Tab PO 25 mg Q8HR TARA Administration Hydromorphone HCl 0.25 mg 08/19/20 14:44 Hydromorphone 1 Mg/1 Ml Inj IV Q4H PRN Pain, Moderate (4-6) REMDESIVIR 100 mg/ Sodium 250 mls @ 500 mls/hr 08/21/20 21:00 08/23/20 23:47 Chloride IV 08/24/20 21:29 500 mls/hr Q24HR@2100 TARA Administration Insulin Human Isoph/Insulin Regular 35 unit 08/23/20 20:34 08/24/20 17:57 Insulin Nph/Regular 70/30 Inj SUB-Q 35 unit BIDDIAB TARA Administration Insulin Human Lispro 0 unit 08/21/20 16:30 08/24/20 17:57 Insulin Lispro 100 Unit/Ml Vial 3 Ml SUB-Q 8 unit ACHS TARA Administration Protocol Labetalol HCl 10 mg 08/21/20 15:28 08/22/20 05:20 Labetalol 20 Mg/4 Ml Inj IV 10 mg Q4H PRN Administration Hypertension Ondansetron HCl 4 mg 08/19/20 14:44 Ondansetron 4 Mg/2 Ml Inj IV Q8H PRN Nausea And Vomiting Sodium Chloride 10 ml 08/19/20 22:00 08/24/20 09:13 Sodium Chloride 0.9% 10 Ml Flush Syringe IV 10 ml BID TARA Administration Sodium Chloride 10 ml 08/19/20 14:44 Sodium Chloride 0.9% 10 Ml Flush Syringe IV PRN PRN LINE FLUSH Sodium Chloride 50 ml 08/20/20 13:00 08/23/20 23:46 Sodium Chloride 0.9% 50 Ml Ivpb IV 08/24/20 21:31 50 ml Q24HR@2130 TARA Administration
[2020-08-24] MEDS: REMDESIVIR 100 MG in SODIUM CHLORIDE 0.9% 250ML 250 ML IV SCH (22:26)
[2020-08-24] MEDS: SODIUM CHLORIDE 0.9% 50 ML IVPB IV SCH (22:27)
[2020-08-25] MEDS: GABAPENTIN 100 MG CAP PO SCH ×3 (06:11→21:46)
[2020-08-25] MEDS: BENZONATATE 100 MG CAP PO SCH ×3 (06:11→21:46)
[2020-08-25] MEDS: hydrALAZINE 25 MG TAB PO SCH ×3 (06:11→21:47)
[2020-08-25] MEDS: INSULIN NPH/REGULAR 70/30 INJ SUB-Q SCH ×2 (09:06→18:42)
[2020-08-25] MEDS: HEPARIN 5,000 UNIT/1 ML VIAL SUB-Q SCH ×2 (09:07→21:46)
[2020-08-25] MEDS: DEXAMETHASONE 4 MG TAB PO SCH (09:07)
[2020-08-25] MEDS: INSULIN LISPRO 100 UNIT/ML VIAL 3 mL SUB-Q SCH ×4 (09:07→21:47)
--- NOTE | 2020-08-25 10:50 | Progress Note ---
Assessment and Plan Assessment and plan: --Severe hyperglycemia;/diabetes mellitus probably secondary to steroid use, and underlying diabetes Accu-Chek sliding scale coverage ADA diet Long-acting insulin, Novolin 70/30 increase to 30 units twice a day check A1c 12.5, Diabetic education, diabetic diet education Possible home health nurse at time of discharge For diabetes management --Peripheral neuropathy; diabetic start low-dose of Neurontin --Hiccups; supportive care. Becki Does not have renal failure or uremia Closely monitor -- Sepsis Current Visit: Yes Status: Acute Plan to address problem: Sepsis secondary to COVID-19 pneumonia Treat the underlying cause, supportive care --Acute hypoxemic respiratory failure Current Visit: Yes Status: Acute Plan to address problem: Oxygen titrate O2 sats to more than 90% BiPAP as needed -- Coronavirus infection; Current Visit: Yes Status: Acute Plan to address problem: History of positive Covid prior to admission No Covid test done We will get a repeat coronavirus PCR ID following, inflammatory markers IV steroids, remdesivir Prone position both day and night --Bilateral pneumonia Current Visit: Yes Status: Acute Plan to address problem: Empiric antibiotics, follow cultures -- Hypertension moderate control Current Visit: Yes Status: Acute Plan to address problem: Monitor blood pressure every shift, continue medical management --DVT prophylaxis Current Visit: Yes Status: Acute Plan to address problem: SCD Closely monitor patient and adjust management as needed Plan of care reviewed with the patient and the nurse Hospitalist Physical - Constitutional Vitals: Temp Pulse Resp BP Pulse Ox 97.4 F L 94 H 18 137/98 98 08/25/20 05:54 08/25/20 06:11 08/25/20 05:54 08/25/20 06:11 08/25/20 05:54 General appearance: Present: mild distress, well-nourished Results - Labs CBC & Chem 7: 08/21/20 13:46 08/21/20 13:46 Labs: Laboratory Last Values WBC 10.6 K/mm3 (4.5-11.0) 08/21/20 13:46 RBC 4.82 M/mm3 (3.65-5.03) 08/21/20 13:46 Hgb 14.0 gm/dl (11.8-15.2) 08/21/20 13:46 Hct 40.9 % (35.5-45.6) 08/21/20 13:46 MCV 85 fl (84-94) 08/21/20 13:46 MCH 29 pg (28-32) 08/21/20 13:46 MCHC 34 % (32-34) 08/21/20 13:46 RDW 12.7 % (13.2-15.2) L 08/21/20 13:46 Plt Count 360 K/mm3 (140-440) 08/21/20 13:46 Lymph % (Auto) 9.5 % (13.4-35.0) L 08/20/20 08:37 [place] % (Auto) 8.8 % (0.0-7.3) H 08/20/20 08:37 Eos % (Auto) 0.0 % (0.0-4.3) 08/20/20 08:37 Baso % (Auto) 0.6 % (0.0-1.8) 08/20/20 08:37 Lymph # (Auto) 1.2 K/mm3 (1.2-5.4) 08/20/20 08:37 [place] # (Auto) 1.1 K/mm3 (0.0-0.8) H 08/20/20 08:37 Eos # (Auto) 0.0 K/mm3 (0.0-0.4) 08/20/20 08:37 Baso # (Auto) 0.1 K/mm3 (0.0-0.1) 08/20/20 08:37 Add Manual Diff Complete 08/19/20 13:04 Total Counted 100 08/19/20 13:04 Seg Neutrophils % 81.1 % (40.0-70.0) H 08/20/20 08:37 Seg Neuts % (Manual) 89.0 % (40.0-70.0) H 08/19/20 13:04 Band Neutrophils % 1.0 % 08/19/20 13:04 Lymphocytes % (Manual) 7.0 % (13.4-35.0) L 08/19/20 13:04 Monocytes % (Manual) 3.0 % (0.0-7.3) 08/19/20 13:04 Nucleated RBC % Not Reportable 08/19/20 13:04 Seg Neutrophils # 10.0 K/mm3 (1.8-7.7) H 08/20/20 08:37 Seg Neutrophils # Man 10.3 K/mm3 (1.8-7.7) H 08/19/20 13:04 Band Neutrophils # 0.1 K/mm3 08/19/20 13:04 Lymphocytes # (Manual) 0.8 K/mm3 (1.2-5.4) L 08/19/20 13:04 Abs React Lymphs (Man) 0.0 K/mm3 08/19/20 13:04 Monocytes # (Manual) 0.3 K/mm3 (0.0-0.8) 08/19/20 13:04 Eosinophils # (Manual) 0.0 K/mm3 (0.0-0.4) 08/19/20 13:04 Basophils # (Manual) 0.0 K/mm3 (0.0-0.1) 08/19/20 13:04 Metamyelocytes # 0.0 K/mm3 08/19/20 13:04 Myelocytes # 0.0 K/mm3 08/19/20 13:04 Promyelocytes # 0.0 K/mm3 08/19/20 13:04 Blast Cells # 0.0 K/mm3 08/19/20 13:04 WBC Morphology Not Reportable 08/19/20 13:04 Hypersegmented Neuts Not Reportable 08/19/20 13:04 Hyposegmented Neuts Not Reportable 08/19/20 13:04 Hypogranular Neuts Not Reportable 08/19/20 13:04 Smudge Cells Not Reportable 08/19/20 13:04 Toxic Granulation Not Reportable 08/19/20 13:04 Toxic Vacuolation Not Reportable 08/19/20 13:04 Dohle Bodies Not Reportable 08/19/20 13:04 Pelger-Huet Anomaly Not Reportable 08/19/20 13:04 Tammy Rods Not Reportable 08/19/20 13:04 Platelet Estimate Consistent w auto 08/19/20 13:04 Clumped Platelets Not Reportable 08/19/20 13:04 Plt Clumps, EDTA Not Reportable 08/19/20 13:04 Large Platelets Not Reportable 08/19/20 13:04 Giant Platelets Not Reportable 08/19/20 13:04 Platelet Satelliting Not Reportable 08/19/20 13:04 Plt Morphology Comment Not Reportable 08/19/20 13:04 RBC Morphology Normal 08/19/20 13:04 Dimorphic RBCs Not Reportable 08/19/20 13:04 Polychromasia Not Reportable 08/19/20 13:04 Hypochromasia Not Reportable 08/19/20 13:04 Poikilocytosis Not Reportable 08/19/20 13:04 Anisocytosis Not Reportable 08/19/20 13:04 Microcytosis Not Reportable 08/19/20 13:04 Macrocytosis Not Reportable 08/19/20 13:04 Spherocytes Not Reportable 08/19/20 13:04 Pappenheimer Bodies Not Reportable 08/19/20 13:04 Sickle Cells Not Reportable 08/19/20 13:04 Target Cells Not Reportable 08/19/20 13:04 Tear Drop Cells Not Reportable 08/19/20 13:04 Ovalocytes Not Reportable 08/19/20 13:04 Helmet Cells Not Reportable 08/19/20 13:04 [place] Bodies Not Reportable 08/19/20 13:04 [place] Rings Not Reportable 08/19/20 13:04 Karan Cells Not Reportable 08/19/20 13:04 Bite Cells Not Reportable 08/19/20 13:04 Crenated Cell Not Reportable 08/19/20 13:04 Elliptocytes Not Reportable 08/19/20 13:04 Acanthocytes (Spur) Not Reportable 08/19/20 13:04 Rouleaux Not Reportable 08/19/20 13:04 Hemoglobin C Crystals Not Reportable 08/19/20 13:04 Schistocytes Not Reportable 08/19/20 13:04 Malaria parasites Not Reportable 08/19/20 13:04 Sunny Bodies Not Reportable 08/19/20 13:04 Hem Pathologist Commnt No 08/19/20 13:04 PT 14.3 Sec. (12.2-14.9) 08/19/20 13:04 INR 1.13 (0.87-1.13) 08/19/20 13:04 APTT 29.2 Sec. (24.2-36.6) 08/19/20 13:04 D-Dimer 472.49 ng/mlDDU (0-234) H 08/23/20 10:26 Sodium 132 mmol/L (137-145) L 08/21/20 13:46 Potassium 4.2 mmol/L (3.6-5.0) 08/21/20 13:46 Chloride 94.6 mmol/L (98-107) L 08/21/20 13:46 Carbon Dioxide 25 mmol/L (22-30) 08/21/20 13:46 Anion Gap 17 mmol/L 08/21/20 13:46 BUN 24 mg/dL (9-20) H 08/21/20 13:46 Creatinine 1.0 mg/dL (0.8-1.3) 08/21/20 13:46 Estimated GFR > 60 ml/min 08/21/20 13:46 BUN/Creatinine Ratio 24 % 08/21/20 13:46 Glucose 570 mg/dL (75-100) H* 08/21/20 13:46 POC Glucose 98 mg/dL (70-105) 08/25/20 07:55 Hemoglobin A1c 12.5 % (4-6) H 08/21/20 13:46 Lactic Acid 1.80 mmol/L (0.7-2.0) 08/19/20 20:49 Calcium 8.9 mg/dL (8.4-10.2) 08/21/20 13:46 Ferritin 955.2 ng/mL (30.0-300.0) H 08/23/20 10:26 Total Bilirubin 0.30 mg/dL (0.1-1.2) 08/23/20 05:11 Direct Bilirubin < 0.2 mg/dL (0-0.2) 08/23/20 05:11 Indirect Bilirubin 0.1 mg/dL 08/23/20 05:11 AST 40 units/L (5-40) 08/23/20 05:11 ALT 57 units/L (7-56) H 08/23/20 05:11 Alkaline Phosphatase 67 units/L (35-129) 08/23/20 05:11 Lactate Dehydrogenase 365 units/L (91-180) H 08/23/20 10:26 C-Reactive Protein 2.10 mg/dL (0.00-1.30) H 08/23/20 10:26 Total Protein 6.5 g/dL (6.3-8.2) 08/23/20 05:11 Albumin 2.8 g/dL (3.9-5) L 08/23/20 05:11 Albumin/Globulin Ratio 0.8 % 08/23/20 05:11 Procalcitonin 0.27 ng/mL (<0.15) 08/21/20 13:46 Urine Color Yellow (Yellow) 08/19/20 20:35 Urine Turbidity Clear (Clear) 08/19/20 20:35 Urine pH 6.0 (5.0-7.0) 08/19/20 20:35 Ur Specific [place] 1.026 (1.003-1.030) 08/19/20 20:35 Urine Protein >500 mg/dL (Negative) 08/19/20 20:35 Urine Glucose (UA) >=500 mg/dL (Negative) 08/19/20 20:35 Urine Ketones 20 mg/dL (Negative) 08/19/20 20:35 Urine Blood Neg (Negative) 08/19/20 20:35 Urine Nitrite Neg (Negative) 08/19/20 20:35 Urine Bilirubin Neg (Negative) 08/19/20 20:35 Urine Urobilinogen < 2.0 mg/dL (<2.0) 08/19/20 20:35 Ur Leukocyte Esterase Neg (Negative) 08/19/20 20:35 Urine WBC (Auto) 2.0 /HPF (0.0-6.0) 08/19/20 20:35 Urine RBC (Auto) 1.0 /HPF (0.0-6.0) 08/19/20 20:35 U Epithel Cells (Auto) < 1.0 /HPF (0-13.0) 08/19/20 20:35 SARS-CoV-2 IgG Ab Reactive (NonReactive) A 08/23/20 10:26 Blood Type B POSITIVE 08/19/20 15:01 Antibody Screen Negative 08/19/20 15:01 Microbiology: Microbiology 08/19/20 13:04 Peripheral/Venous Blood Culture - Final NO GROWTH AFTER 5 DAYS 08/19/20 13:04 Peripheral/Venous Blood Culture - Final NO GROWTH AFTER 5 DAYS Luis/IV: Voiding Method Toilet IV Catheter Type [Left Upper INT / Saline Lock arm] IV Catheter Type [Left Forearm Peripheral IV ] Active Medications - Current Medications Current Medications: Generic Name Dose Route Start Last Admin Trade Name Freq PRN Reason Stop Dose Admin Acetaminophen 650 mg 08/19/20 14:44 08/23/20 23:47 Acetaminophen 325 Mg Tab PO 650 mg Q4H PRN Administration Pain MILD(1-3)/Fever >100.5/MEIER Albuterol 2.5 mg 08/19/20 14:44 Albuterol 2.5 Mg/3 Ml Nebu IH Q4H PRN Shortness Of Breath Benzonatate 100 mg 08/20/20 14:00 08/25/20 06:11 Benzonatate 100 Mg Cap PO 100 mg Q8HR TARA Administration Chlorpromazine HCl 10 mg 08/21/20 15:31 08/22/20 22:01 Chlorpromazine 10 Mg Tab PO 10 mg Q4H PRN Administration Hiccups Dexamethasone 6 mg 08/20/20 12:00 08/25/20 09:07 Dexamethasone 4 Mg Tab PO 08/28/20 10:01 6 mg Q24HR TARA Administration Gabapentin 100 mg 08/23/20 22:00 08/25/20 06:11 Gabapentin 100 Mg Cap PO 100 mg Q8HR TARA Administration Heparin Sodium (Porcine) 5,000 unit 08/19/20 22:00 08/25/20 09:07 Heparin 5,000 Unit/1 Ml Vial SUB-Q 5,000 unit Q12HR TARA Administration Hydralazine HCl 25 mg 08/23/20 14:00 08/25/20 06:11 Hydralazine 25 Mg Tab PO 25 mg Q8HR TARA Administration Hydromorphone HCl 0.25 mg 08/19/20 14:44 Hydromorphone 1 Mg/1 Ml Inj IV Q4H PRN Pain, Moderate (4-6) Insulin Human Isoph/Insulin Regular 35 unit 08/23/20 20:34 08/25/20 09:06 Insulin Nph/Regular 70/30 Inj SUB-Q 35 unit BIDDIAB TARA Administration Insulin Human Lispro 0 unit 08/21/20 16:30 08/25/20 09:07 Insulin Lispro 100 Unit/Ml Vial 3 Ml SUB-Q Not Given ACHS [facility] Protocol Labetalol HCl 10 mg 08/21/20 15:28 08/22/20 05:20 Labetalol 20 Mg/4 Ml Inj IV 10 mg Q4H PRN Administration Hypertension Ondansetron HCl 4 mg 08/19/20 14:44 Ondansetron 4 Mg/2 Ml Inj IV Q8H PRN Nausea And Vomiting Sodium Chloride 10 ml 08/19/20 22:00 08/25/20 09:08 Sodium Chloride 0.9% 10 Ml Flush Syringe IV 10 ml BID TARA Administration Sodium Chloride 10 ml 08/19/20 14:44 Sodium Chloride 0.9% 10 Ml Flush Syringe IV PRN PRN LINE FLUSH
--- NOTE | 2020-08-25 11:04 | Progress Note ---
Assessment and Plan 50 y/o male with acute respiratory failure and COVID positive with Hypertension. 08/25/2020: Agree with ambulatory test. No documentation of proning. RT did mention that they encouraged him to prone in their notes. No lasix today. Will see as needed over the weekend if not discharged. 08/23/2020: Agree with ambulatory test. No documentation of proning so not sure if done or not. Will give lasix again today. 08/22/2020: Wean FiO2 as tolerated for sats >88%. Continue steroids and remdesivir. Abx therapy per ID. Would like to give additional lasix but will ask primary to follow up on labs to see if it is safe to do so. Will continue to follow. Will ask nursing to please document if proning is being done or not. 1. Prone daily and sleep prone at night 2. Continue steroids 3. Continue remdesivir 4. Will give lasix 40mg IV x1 5. No additional IVF's Will continue to follow along with you. Subjective Date of service: 08/25/20 Principal diagnosis: Covid pneumonia and respiratory failure with hypoxia Interval history: No acute events. Still on 2 liters NC. Does not appear to have had walk test yet Objective Vital Signs - 12hr 08/24/20 08/25/20 08/25/20 23:36 05:54 06:11 Temperature 97.9 F 97.4 F L Pulse Rate 93 H 94 H 94 H Respiratory 18 18 Rate Blood Pressure 158/103 137/98 137/98 O2 Sat by Pulse 97 98 Oximetry Constitutional: alert Eyes: non-icteric Neck: supple Ascultation: Bilateral: rhonchi (rare) Cardiovascular: regular rate and rhythm Gastrointestinal: normoactive bowel sounds, soft, non-tender Integumentary: normal Extremities: no cyanosis Neurologic: normal mental status Psychiatric: mood appropriate CBC and BMP: 08/21/20 13:46 08/21/20 13:46 ABG, PT/INR, D-dimer: PT/INR, D-dimer PT 14.3 Sec. (12.2-14.9) 08/19/20 13:04 INR 1.13 (0.87-1.13) 08/19/20 13:04 D-Dimer 472.49 ng/mlDDU (0-234) H 08/23/20 10:26 Abnormal lab findings: Abnormal Labs 12/12/20 12/12/20 12/12/20 13:04 13:04 13:04 WBC 11.6 H RBC 5.05 H RDW 13.1 L Lymph % (Auto) [place] % (Auto) [place] # (Auto) Seg Neutrophils % Seg Neuts % (Manual) 89.0 H Lymphocytes % (Manual) 7.0 L Seg Neutrophils # Seg Neutrophils # Man 10.3 H Lymphocytes # (Manual) 0.8 L D-Dimer Sodium 135 L Potassium 5.1 H Chloride Carbon Dioxide BUN Glucose 324 H POC Glucose Hemoglobin A1c Lactic Acid 2.10 H* Ferritin AST ALT Lactate Dehydrogenase C-Reactive Protein Albumin SARS-CoV-2 IgG Ab 08/19/20 08/19/20 08/20/20 13:04 14:39 08:37 WBC 12.4 H RBC RDW 13.1 L Lymph % (Auto) 9.5 L [place] % (Auto) 8.8 H [place] # (Auto) 1.1 H Seg Neutrophils % 81.1 H Seg Neuts % (Manual) Lymphocytes % (Manual) Seg Neutrophils # 10.0 H Seg Neutrophils # Man Lymphocytes # (Manual) D-Dimer Sodium Potassium Chloride Carbon Dioxide BUN Glucose POC Glucose 274 H Hemoglobin A1c Lactic Acid Ferritin AST 48 H ALT Lactate Dehydrogenase C-Reactive Protein Albumin 3.0 L SARS-CoV-2 IgG Ab 08/20/20 08/21/20 08/21/20 08:37 13:46 13:46 WBC RBC RDW Lymph % (Auto) [place] % (Auto) [place] # (Auto) Seg Neutrophils % Seg Neuts % (Manual) Lymphocytes % (Manual) Seg Neutrophils # Seg Neutrophils # Man Lymphocytes # (Manual) D-Dimer 433.44 H Sodium 135 L Potassium Chloride Carbon Dioxide 20 L BUN 22 H Glucose 462 H POC Glucose Hemoglobin A1c Lactic Acid Ferritin AST ALT Lactate Dehydrogenase C-Reactive Protein Albumin 3.0 L SARS-CoV-2 IgG Ab 08/21/20 08/21/20 08/21/20 13:46 13:46 13:46 WBC RBC RDW Lymph % (Auto) [place] % (Auto) [place] # (Auto) Seg Neutrophils % Seg Neuts % (Manual) Lymphocytes % (Manual) Seg Neutrophils # Seg Neutrophils # Man Lymphocytes # (Manual) D-Dimer Sodium 132 L Potassium Chloride 94.6 L Carbon Dioxide BUN 24 H Glucose 570 H* POC Glucose Hemoglobin A1c Lactic Acid Ferritin 1365.0 H AST ALT Lactate Dehydrogenase 416 H C-Reactive Protein 4.80 H Albumin SARS-CoV-2 IgG Ab 08/21/20 08/21/20 08/21/20 13:46 13:46 17:27 WBC RBC RDW 12.7 L Lymph % (Auto) [place] % (Auto) [place] # (Auto) Seg Neutrophils % Seg Neuts % (Manual) Lymphocytes % (Manual) Seg Neutrophils # Seg Neutrophils # Man Lymphocytes # (Manual) D-Dimer Sodium Potassium Chloride Carbon Dioxide BUN Glucose POC Glucose 584 H Hemoglobin A1c 12.5 H Lactic Acid Ferritin AST ALT Lactate Dehydrogenase C-Reactive Protein Albumin SARS-CoV-2 IgG Ab 08/21/20 08/22/20 08/22/20 21:49 05:28 08:05 WBC RBC RDW Lymph % (Auto) [place] % (Auto) [place] # (Auto) Seg Neutrophils % Seg Neuts % (Manual) Lymphocytes % (Manual) Seg Neutrophils # Seg Neutrophils # Man Lymphocytes # (Manual) D-Dimer Sodium Potassium Chloride Carbon Dioxide BUN Glucose POC Glucose 514 H 389 H 315 H Hemoglobin A1c Lactic Acid Ferritin AST ALT Lactate Dehydrogenase C-Reactive Protein Albumin SARS-CoV-2 IgG Ab 08/22/20 08/22/20 08/22/20 11:51 16:46 21:19 WBC RBC RDW Lymph % (Auto) [place] % (Auto) [place] # (Auto) Seg Neutrophils % Seg Neuts % (Manual) Lymphocytes % (Manual) Seg Neutrophils # Seg Neutrophils # Man Lymphocytes # (Manual) D-Dimer Sodium Potassium Chloride Carbon Dioxide BUN Glucose POC Glucose 412 H 374 H 334 H Hemoglobin A1c Lactic Acid Ferritin AST ALT Lactate Dehydrogenase C-Reactive Protein Albumin SARS-CoV-2 IgG Ab 08/23/20 08/23/20 08/23/20 05:11 06:15 10:26 WBC RBC RDW Lymph % (Auto) [place] % (Auto) [place] # (Auto) Seg Neutrophils % Seg Neuts % (Manual) Lymphocytes % (Manual) Seg Neutrophils # Seg Neutrophils # Man Lymphocytes # (Manual) D-Dimer Sodium Potassium Chloride Carbon Dioxide BUN Glucose POC Glucose 169 H Hemoglobin A1c Lactic Acid Ferritin AST ALT 57 H Lactate Dehydrogenase C-Reactive Protein Albumin 2.8 L SARS-CoV-2 IgG Ab Reactive A 08/23/20 08/23/20 08/23/20 10:26 10:26 10:26 WBC RBC RDW Lymph % (Auto) [place] % (Auto) [place] # (Auto) Seg Neutrophils % Seg Neuts % (Manual) Lymphocytes % (Manual) Seg Neutrophils # Seg Neutrophils # Man Lymphocytes # (Manual) D-Dimer 472.49 H Sodium Potassium Chloride Carbon Dioxide BUN Glucose POC Glucose Hemoglobin A1c Lactic Acid Ferritin 955.2 H AST ALT Lactate Dehydrogenase C-Reactive Protein 2.10 H Albumin SARS-CoV-2 IgG Ab 08/23/20 08/23/20 08/23/20 10:26 10:33 16:55 WBC RBC RDW Lymph % (Auto) [place] % (Auto) [place] # (Auto) Seg Neutrophils % Seg Neuts % (Manual) Lymphocytes % (Manual) Seg Neutrophils # Seg Neutrophils # Man Lymphocytes # (Manual) D-Dimer Sodium Potassium Chloride Carbon Dioxide BUN Glucose POC Glucose 265 H 422 H Hemoglobin A1c Lactic Acid Ferritin AST ALT Lactate Dehydrogenase 365 H C-Reactive Protein Albumin SARS-CoV-2 IgG Ab 08/23/20 08/24/20 08/24/20 22:56 07:42 12:25 WBC RBC RDW Lymph % (Auto) [place] % (Auto) [place] # (Auto) Seg Neutrophils % Seg Neuts % (Manual) Lymphocytes % (Manual) Seg Neutrophils # Seg Neutrophils # Man Lymphocytes # (Manual) D-Dimer Sodium Potassium Chloride Carbon Dioxide BUN Glucose POC Glucose 329 H 150 H 309 H Hemoglobin A1c Lactic Acid Ferritin AST ALT Lactate Dehydrogenase C-Reactive Protein Albumin SARS-CoV-2 IgG Ab 08/24/20 08/24/20 15:55 22:05 WBC RBC RDW Lymph % (Auto) [place] % (Auto) [place] # (Auto) Seg Neutrophils % Seg Neuts % (Manual) Lymphocytes % (Manual) Seg Neutrophils # Seg Neutrophils # Man Lymphocytes # (Manual) D-Dimer Sodium Potassium Chloride Carbon Dioxide BUN Glucose POC Glucose 295 H 294 H Hemoglobin A1c Lactic Acid Ferritin AST ALT Lactate Dehydrogenase C-Reactive Protein Albumin SARS-CoV-2 IgG Ab
[2020-08-25] MEDS ORDERED: MAGNESIUM HYDROXIDE (MOM) ORAL LIQD UDC PO NR (12:00)
--- NOTE | 2020-08-25 13:17 | Progress Note ---
Assessment and Plan Cultures: Blood culture no growth so far. A/P: 50-year-old man past medical history hypertension admitted to the hospital with COVID-19 #Severe COVID-19 pneumonia: Patient presented with 4 days of symptoms, chest x- ray with diffuse bilateral infiltrates, Markers elevated, improving. #Acute hypoxemic respiratory failure: Likely secondary to COVID-19 infection. Admission O2 sats 88% on room air. Remains on 2 L nasal cannula. #Hypertension #Elevated lactate: Likely due to pneumonia, blood cultures negative, urinalysis negative. #Diabetes mellitus: Uncontrolled. A1c 12. Recs: -6-minute walking test if she passes the test okay to discharge after today's remdesivir, if she does not pass the test continue remdesivir for 5 days NOT DOCUMENTED X 48H -Follow-up SARS Covid 2 IgG pending reorder -Continue dexamethasone 6 mg IV/PO daily for 10 days -D5 of 10 -Continue remdesivir total 5 days monitor renal and hepatic function while receiving.-D5 of 5 -Proning as able -Anticoagulation per hospital protocol Dr. Rodriguez rounding this weekend will follow MD [facility] ([facility]) Office [phone] Subjective Date of service: 08/25/20 Principal diagnosis: Covid pneumonia and respiratory failure with hypoxia Interval history: Patient remains on 2 L nasal cannula, no fever. Objective - Exam Narrative Exam: Deferred to avoid transmission of COVID-19 - Constitutional Vitals: Vital Signs Temp Pulse Resp BP Pulse Ox 97.4 F L 94 H 18 137/98 98 08/25/20 05:54 08/25/20 06:11 08/25/20 05:54 08/25/20 06:11 08/25/20 05:54 Temperature -Last 24 Hours Temperature 97.4 F Temperature 97.9 F Temperature 97.7 F Temperature 98.4 F - Labs CBC & Chem 7: 08/21/20 13:46 08/21/20 13:46 Labs: Abnormal lab results 08/24/20 08/24/20 08/25/20 Range/Units 15:55 22:05 12:04 POC Glucose 295 H 294 H 211 H (70-105) mg/dL
[2020-08-26] MEDS: BENZONATATE 100 MG CAP PO SCH ×2 (05:55→15:00)
[2020-08-26] MEDS: GABAPENTIN 100 MG CAP PO SCH ×2 (05:55→15:00)
[2020-08-26] MEDS: hydrALAZINE 25 MG TAB PO SCH ×2 (05:55→15:00)
[2020-08-26] MEDS: INSULIN LISPRO 100 UNIT/ML VIAL 3 mL SUB-Q SCH ×3 (07:30→16:30)
[2020-08-26] MEDS: DEXAMETHASONE 4 MG TAB PO SCH (09:54)
[2020-08-26] MEDS: INSULIN NPH/REGULAR 70/30 INJ SUB-Q SCH ×2 (09:55→17:39)
[2020-08-26] MEDS: HEPARIN 5,000 UNIT/1 ML VIAL SUB-Q SCH (09:56)
--- NOTE | 2020-08-26 16:09 | Discharge Summary ---
Providers - Providers Date of Admission: 08/19/20 15:35 Date of discharge: 08/26/20 Attending physician: CITLALI CABEZAS 08/19/20 18:00 Consult to Physician [CONS] Routine Comment: Consulting Provider: MARY SIMMNOS Physician Instructions: Reason For Exam: PUI 08/19/20 18:01 Consult to Physician [CONS] Routine Comment: Consulting Provider: JEANINE NORIEGA Physician Instructions: Reason For Exam: covid infection Primary care physician: [facility] Hospitalization Condition: Stable Disposition: DC- TO HOME OR SELFCARE Time spent for discharge: 35 min Core Measure Documentation - Palliative Care Palliative Care/ Comfort Measures: Not Applicable - Core Measures Any of the following diagnoses?: none Exam - Constitutional Vitals: Temp Pulse Resp BP Pulse Ox 98.7 F 95 H 22 145/101 96 08/26/20 12:40 08/26/20 12:40 08/26/20 12:40 08/26/20 12:40 08/26/20 12:40 General appearance: Present: no acute distress, well-nourished - EENT Eyes: Present: PERRL, EOM intact - Neck Neck: Present: supple, normal ROM - Respiratory Respiratory effort: normal Respiratory: bilateral: diminished, wheezing, negative: rales, rhonchi - Cardiovascular Rhythm: regular Heart Sounds: Present: S1 & S2 - Extremities Extremities: no ischemia, No edema - Abdominal General gastrointestinal: Present: soft, non-tender, non-distended, normal bowel sounds - Integumentary Integumentary: Present: clear, warm - Musculoskeletal Musculoskeletal: strength equal bilaterally - Psychiatric Psychiatric: appropriate mood/affect, cooperative Plan Activity: advance as tolerated Diet: diabetic Additional Instructions: Your resting room air O2 saturation and ambulatory room air oxygen saturations are more than 93%. No indication for home oxygen at this point. If you have worsening symptoms contact MD or go to emergency room as needed. Advised to see primary care physician in 1 to 2 weeks. Advised to see private optical model maker and tester/diabetic specialist Dr. Yumiko Dave/or any other optical model maker and tester in 1 to 2 weeks. Advised to follow strictly COVID-19 isolation, self quarantine and other protocols as instructed by your discharge nurse. Follow up with: PRIMARY MD KANE [Primary Care Provider] - 3-5 Days DORY COLLINS MD [Staff Physician] - 7 Days YUMIKO DAVE MD [Staff Physician] - 7 Days Prescriptions: hydrALAZINE [Apresoline TAB] 25 mg PO Q8HR #90 tablet dexAMETHasone [Decadron] 6 mg PO Q24HR #3 tablet Gabapentin 100 mg PO Q8HR #90 capsule Insulin NPH/Regular [NovoLIN 70/30] 35 unit SUB-Q BIDDIAB #2 vial Benzonatate [Tessalon Perles] 100 mg PO Q8HR #15 capsule
[2020-08-26 18:06] VITALS: BP 154/104
== END 2020-08-26 19:00 | disposition home or self-care (01) | DRG 871 ==
LOC: ED 12:04 → IMCU 15:35 → 3A 15:37
PROVIDERS: ADMIT Internal Medicine; ATTEND Internal Medicine
PROC: XW033E5 Introduction of Remdesivir Anti-infective into Peripheral Vein, Percutaneous Approach, New Technology Group 5 (ICD-10-PCS; principal; 2020-08-20)
DX: A41.89 Other specified sepsis (principal); U07.1 COVID-19; J12.89 Other viral pneumonia; J96.01 Acute respiratory failure with hypoxia; I10 Essential (primary) hypertension; E11.65 Type 2 diabetes mellitus with hyperglycemia; E11.42 Type 2 diabetes mellitus with diabetic polyneuropathy; Z91.041 Radiographic dye allergy status; Z82.49 Family history of ischemic heart disease and other diseases of the circulatory system
CPT/HCPCS: 36415; 71045; 80048; 80076; 81001; 82140; 82728; 82962; 83036; 83615; 84145; 85007; 85025; 85027; 85379; 85610; 85730; 86140; 86850; 86900; 86901; 87040; 94760; 96365; 96375; 96376; G0378; J0360; J0456; J0696; J1100; J1644; J1815; J1940; J7030; J7050; J8540; Q0161